=== PATIENT | female | born 1960 | race Caucasian/White ===

== ENCOUNTER 2017-12-10 07:46 | Outpatient (CLI) | payer BC | END 2017-12-10 07:47 | disposition home or self-care (01) | LOC: BICMAMMO 07:46 | PROVIDERS: ATTEND Family Medicine | DX: Z12.31 Encounter for screening mammogram for malignant neoplasm of breast (principal); Z80.3 Family history of malignant neoplasm of breast | CPT/HCPCS: 77063; 77067 ==

== ENCOUNTER 2018-12-26 12:57 | Outpatient (CLI) | payer OTHER ==
--- NOTE | 2018-12-26 13:51 | MMO ---
Bilateral MAMMO Bilat Screen [facility]. CLINICAL HISTORY: Patient is 58 years old and is seen for screening. The patient has the following family history of breast cancer: aunt. The patient has no personal history of cancer. The patient has a history of right Ultrasound Guided Core Biopsy in 2017 - benign and right Ultrasound Guided Core Biopsy in 2007 - benign. VIEWS: The views performed were: bilateral craniocaudal with tomosynthesis and bilateral mediolateral oblique with tomosynthesis. FILMS COMPARED: The present examination has been compared to a prior imaging study performed at [facility] on 12/10/2017. MAMMOGRAM FINDINGS: The breasts are heterogeneously dense, which could obscure a lesion on mammography. There are masses in the retroaerolar breasts bilaterally. IMPRESSION: FINDINGS IN BOTH BREASTS REQUIRE ADDITIONAL EVALUATION. SPOT COMPRESSION IS RECOMMENDED. AN ULTRASOUND EXAM IS RECOMMENDED. THE RESULTS OF THIS EXAM WERE SENT TO THE PATIENT. ACR BI-RADS Category 0 - Incomplete: Need additional imaging evaluation. [facility] will notify the patient of the need for additional imaging services. MAMMOGRAPHY NOTE: 1. A negative mammogram report should not delay a biopsy if a dominant of clinically suspicious mass is present. 2. Approximately 10% to 15% of breast cancers are not detected by mammography. 3. Adenosis and dense breasts may obscure an underlying neoplasm.
== END 2018-12-26 12:58 | disposition home or self-care (01) ==
LOC: BICMAMMO 12:57
PROVIDERS: ATTEND Clinical Nurse Specialist Medical-Surgical
DX: Z12.31 Encounter for screening mammogram for malignant neoplasm of breast (principal); Z80.3 Family history of malignant neoplasm of breast
CPT/HCPCS: 77063; 77067

== ENCOUNTER 2019-01-03 13:34 | Outpatient (CLI) | payer OTHER ==
--- NOTE | 2019-01-03 14:22 | MMO ---
Bilateral MAMMO Bilat Diag [facility]. CLINICAL HISTORY: Patient is 58 years old and is seen for follow-up at short-interval from prior study. The patient has the following family history of breast cancer: aunt. The patient has no personal history of cancer. The patient has a history of right Ultrasound Guided Core Biopsy in 2017 - benign and right Ultrasound Guided Core Biopsy in 2007 - benign. VIEWS: The views performed were: bilateral craniocaudal spot compression with tomosynthesis; bilateral mediolateral with tomosynthesis; left mediolateral oblique spot compression with tomosynthesis; and left mediolateral. FILMS COMPARED: The present examination has been compared to prior imaging studies performed at [facility] on 12/10/2017, 12/26/2018 and 01/03/2019. MAMMOGRAM FINDINGS: The breasts are heterogeneously dense, which could obscure a lesion on mammography. There are multiple round masses of varying size with circumscribed margins seen in the sub-areolar region of both breasts. The masses were shown to be cysts on ultrasound. There are no suspicious masses, suspicious calcifications, or new areas of architectural distortion. IMPRESSION: THERE IS NO MAMMOGRAPHIC EVIDENCE OF MALIGNANCY. A ROUTINE FOLLOW-UP MAMMOGRAM IN 1 YEAR IS RECOMMENDED. THE RESULTS OF THIS EXAM WERE SENT TO THE PATIENT. ACR BI-RADS Category 2 - Benign finding MAMMOGRAPHY NOTE: 1. A negative mammogram report should not delay a biopsy if a dominant of clinically suspicious mass is present. 2. Approximately 10% to 15% of breast cancers are not detected by mammography. 3. Adenosis and dense breasts may obscure an underlying neoplasm.
--- NOTE | 2019-01-03 15:17 | ULT ---
BILATERAL BREAST ULTRASOUND: HISTORY: Asymmetry seen in the retroareolar region of both breasts on mammography. COMPARISON: Mammograms from 01/03/2019 and from 12/26/2018. TECHNIQUE: Multiplanar sprague-scale and color Doppler images were obtained in a bilateral breast ultrasound. FINDINGS: In the retroareolar region of the right breast, there are numerous small cysts, measuring up to 8 mm in size. No suspicious shadowing or mass is seen in the right breast. In the left breast, numerous cysts are identified. The largest measures 2 cm in greatest dimension. No suspicious masses or shadowing is seen in the left breast. IMPRESSION: BI-RADS category 2-Benign findings. Annual screening mammography is recommended. POS: ARAMIS
== END 2019-01-03 13:35 | disposition home or self-care (01) ==
LOC: BICMAMMO 13:34
PROVIDERS: ATTEND Clinical Nurse Specialist Medical-Surgical
DX: N63.41 Unspecified lump in right breast, subareolar (principal); N63.42 Unspecified lump in left breast, subareolar; Z80.3 Family history of malignant neoplasm of breast
CPT/HCPCS: 77066; G0279

== ENCOUNTER 2020-06-02 10:20 | Outpatient (CLI) | payer OTHER ==
--- NOTE | 2020-06-02 10:40 | MMO ---
Bilateral MAMMO Bilat Screen [facility]. CLINICAL HISTORY: Patient is 59 years old and is seen for screening. The patient has the following family history of breast cancer: aunt. The patient has no personal history of cancer. The patient has a history of right Ultrasound Guided Core Biopsy in 2017 - benign and right Ultrasound Guided Core Biopsy in 2007 - benign. VIEWS: The views performed were: bilateral craniocaudal with tomosynthesis and bilateral mediolateral oblique with tomosynthesis. FILMS COMPARED: The present examination has been compared to prior imaging studies performed at [facility] on 12/26/2018 and 01/03/2019. This study has been interpreted with the assistance of computer-aided detection. MAMMOGRAM FINDINGS: The breasts are heterogeneously dense, which could obscure a lesion on mammography. There are no suspicious masses, suspicious calcifications, or new areas of architectural distortion. IMPRESSION: THERE IS NO MAMMOGRAPHIC EVIDENCE OF MALIGNANCY. A ROUTINE FOLLOW-UP MAMMOGRAM IN 1 YEAR IS RECOMMENDED. THE RESULTS OF THIS EXAM WERE SENT TO THE PATIENT. ACR BI-RADS Category 1 - Negative MAMMOGRAPHY NOTE: 1. A negative mammogram report should not delay a biopsy if a dominant of clinically suspicious mass is present. 2. Approximately 10% to 15% of breast cancers are not detected by mammography. 3. Adenosis and dense breasts may obscure an underlying neoplasm. Reported by: GAL RAHMAN MD Electonically Signed: [id number]
== END 2020-06-02 10:21 | disposition home or self-care (01) ==
LOC: BICMAMMO 10:20
PROVIDERS: ATTEND Clinical Nurse Specialist Medical-Surgical
DX: Z12.31 Encounter for screening mammogram for malignant neoplasm of breast (principal); Z91.89 Other specified personal risk factors, not elsewhere classified; Z80.3 Family history of malignant neoplasm of breast
CPT/HCPCS: 77063; 77067

== ENCOUNTER 2021-02-01 10:12 | Inpatient (IN) | payer OTHER ==
[2021-02-01] MEDS ORDERED: Promethazine HCl 12.5 MG in Sodium Chloride 0.9% 50 ML IVPB PRN (10:54)
[2021-02-01] MEDS ORDERED: Ondansetron PF 4 MG/2 ML Vial IVP PRN ×2 (10:55→14:44)
[2021-02-01] MEDS: Sodium Chloride 0.9% 1,000 ML IV SCH ×3 (11:30→21:55)
[2021-02-01 11:49] LABS: #Basophils 0.1 thou/uL (0.0-0.2); #Eosinphils 0.2 thou/uL (0.0-0.7); #Lymphocytes 1.8 thou/uL (1.20-3.40); #Monocytes 0.5 thou/uL (0.11-0.59); #Neutrophils 4.1 thou/uL (1.40-6.50); %Basophils 0.8 % (0.0-1.0); %Lymphocytes 27.2 % (21.0-51.0); %Monocytes 7.7 % (0.0-10.0); %Neutrophils 61.3 % (42.0-75.0); Hemoglobin 14.2 g/dL (12.0-16.0); Mean Corpuscular HGB CONC 33.1 g/dL (32.0-36.0); Mean Corpuscular Hemoglobin 29.2 pg (27.0-31.0); Mean Corpuscular Volume 88.2 fL (78.0-98.0); Mean Platelet Volume 6.8 fL (7.4-10.4); Platelet Count 294 thou/uL (130-400); RBC Distribution Width 13.7 % (11.5-14.5); Red Blood Cell (RBC) Count 4.87 mill/uL (4.20-5.40); White Blood Cell (WBC) Count 6.6 thou/uL (4.8-10.8)
[2021-02-01 12:10] LABS: Anion Gap 14 mmol/L (10-20); BUN (Urea Nitrogen) 14 mg/dL (9.8-20.1); Calc. Creatinine Clearance 0 mL/min (70-130); Calcium 9.9 mg/dL (7.8-10.44); Carbon Dioxide 22 mmol/L (22-29); Chloride 106 mmol/L (98-107); Glucose 96 mg/dL (70-105); Potassium 3.6 mmol/L (3.5-5.1); Sodium 138 mmol/L (136-145)
[2021-02-01] MEDS ORDERED: Levofloxacin 500 mg/D5W 100 ml Premix Bag ONE (13:22)
[2021-02-01] MEDS ORDERED: Fentanyl 100 MCG/2 ML VIAL ONE ×4 (13:35→15:13)
[2021-02-01] MEDS ORDERED: Rocuronium Bromide 10 MG/ML (10ML VIAL) ONE (13:45)
[2021-02-01] MEDS ORDERED: Succinylcholine 200 MG/10 ml SYRINGE FS ONE (13:45)
[2021-02-01] MEDS ORDERED: Lidocaine 1% PF 5 ML VIAL ONE (13:45)
[2021-02-01] MEDS ORDERED: Glycopyrrolate 0.2 MG/ML 5 ML SYRINGE ONE (13:45)
[2021-02-01] MEDS ORDERED: Ondansetron PF 4 MG/2 ML Vial ONE (13:45)
[2021-02-01] MEDS ORDERED: PROPOFOL 200 MG/20 ML VIAL ONE (13:45)
[2021-02-01] MEDS ORDERED: Dexamethasone 20 MG/5 ML VIAL ONE (13:45)
[2021-02-01] MEDS ORDERED: Bupivacaine PF 0.5% 30 ML VIAL ONE (13:56)
[2021-02-01] MEDS ORDERED: hydrALAZINE 20 MG/ML VIAL SLOW IVP PRN (14:44)
[2021-02-01] MEDS ORDERED: Promethazine HCl 25 MG/ML VIAL IM PRN ×2 (14:44→14:59)
[2021-02-01] MEDS ORDERED: Naloxone HCl 0.4 mg/ml Vial IV PRN (14:59)
[2021-02-01] MEDS ORDERED: fentaNYL Citrate/PF 2,000 MCG in Sodium Chloride 0.9% 60 ML IV PRN (14:59)
[2021-02-01] MEDS ORDERED: diphenhydrAMINE 50 MG/ML VIAL IVP PRN (14:59)
[2021-02-01] MEDS ORDERED: Zolpidem Tartrate 5 MG TAB PO PRN (14:59)
[2021-02-01] MEDS ORDERED: diphenhydrAMINE 25 MG CAP PO PRN (14:59)
[2021-02-01] MEDS ORDERED: diphenhydrAMINE 50 MG/ML VIAL IM PRN (14:59)
[2021-02-01] MEDS ORDERED: Communication Order-Pharmacy FS SCH (15:00)
[2021-02-01] MEDS ORDERED: HYDROmorphone 2 MG/ML VIAL ONE (15:16)
[2021-02-01] MEDS: metroNIDAZOLE 500 MG in Premix Bag 1 BAG IVPB SCH (18:09)
[2021-02-01] MEDS: Ketorolac Tromethamine 30 MG/ML VIAL IVP SCH (18:09)
[2021-02-01 19:52] VITALS: BMI 25.0
[2021-02-01] MEDS: Famotidine 20 MG TAB PO SCH (21:55)
[2021-02-01] MEDS: Famotidine/PF 20 mg/2ml Vial SLOW IVP SCH (21:55)
[2021-02-02] MEDS: Sodium Chloride 0.9% 1,000 ML IV SCH ×5 (00:26→17:43)
[2021-02-02] MEDS: Ketorolac Tromethamine 30 MG/ML VIAL IVP SCH ×4 (00:27→18:01)
[2021-02-02] MEDS: metroNIDAZOLE 500 MG in Premix Bag 1 BAG IVPB SCH ×2 (00:28→05:31)
[2021-02-02 06:00] LABS: #Lymphocytes 1.2 thou/uL (1.20-3.40); #Monocytes 0.8 thou/uL (0.11-0.59); #Neutrophils 7.9 thou/uL (1.40-6.50); %Basophils 0.3 % (0.0-1.0); %Eosinophils 0.3 % (0.0-10.0); %Lymphocytes 12.1 % (21.0-51.0); %Neutrophils 79.3 % (42.0-75.0); Mean Corpuscular Hemoglobin 29.4 pg (27.0-31.0); Mean Platelet Volume 6.8 fL (7.4-10.4); Platelet Count 226 thou/uL (130-400); RBC Distribution Width 13.5 % (11.5-14.5); Red Blood Cell (RBC) Count 4.09 mill/uL (4.20-5.40); White Blood Cell (WBC) Count 9.9 thou/uL (4.8-10.8)
[2021-02-02 06:19] LABS: Anion Gap 11 mmol/L (10-20); BUN (Urea Nitrogen) 15 mg/dL (9.8-20.1); Calc. Creatinine Clearance 83 mL/min (70-130); Calcium 8.6 mg/dL (7.8-10.44); Carbon Dioxide 22 mmol/L (22-29); Chloride 108 mmol/L (98-107); Glucose 102 mg/dL (70-105); Potassium 3.8 mmol/L (3.5-5.1); Sodium 137 mmol/L (136-145)
[2021-02-02] MEDS: Famotidine/PF 20 mg/2ml Vial SLOW IVP SCH ×2 (08:14→21:32)
[2021-02-02] MEDS: Enoxaparin Sodium 40 MG/0.4 ML SYRINGE SC SCH (08:14)
[2021-02-02] MEDS: Famotidine 20 MG TAB PO SCH ×2 (08:28→21:29)
[2021-02-02] MEDS ORDERED: Iopamidol 370 76% 50 ML VIAL FS ONE (09:11)
[2021-02-02] MEDS ORDERED: Iopamidol-370 76% 500 ML 1 ML ONE (09:11)
[2021-02-02] MEDS: Ondansetron PF 4 MG/2 ML Vial IVP PRN (19:19)
[2021-02-03] MEDS: Ketorolac Tromethamine 30 MG/ML VIAL IVP SCH ×5 (00:59→23:39)
[2021-02-03] MEDS: Ondansetron PF 4 MG/2 ML Vial IVP PRN (01:04)
[2021-02-03] MEDS: Promethazine HCl 12.5 MG in Sodium Chloride 0.9% 50 ML IVPB PRN ×2 (06:20→22:08)
[2021-02-03] MEDS: Famotidine/PF 20 mg/2ml Vial SLOW IVP SCH ×2 (08:27→21:03)
[2021-02-03] MEDS: Enoxaparin Sodium 40 MG/0.4 ML SYRINGE SC SCH (08:27)
[2021-02-03] MEDS: Famotidine 20 MG TAB PO SCH ×2 (08:31→21:02)
[2021-02-03] MEDS: D5 1/2 NS w/20 mEq KCL 1,000 ML IV SCH ×2 (09:08→17:34)
[2021-02-03 09:35] LABS: #Basophils 0.1 thou/uL (0.0-0.2); #Eosinphils 0.1 thou/uL (0.0-0.7); #Lymphocytes 1.1 thou/uL (1.20-3.40); #Monocytes 0.4 thou/uL (0.11-0.59); #Neutrophils 7.4 thou/uL (1.40-6.50); %Basophils 0.7 % (0.0-1.0); %Eosinophils 0.8 % (0.0-10.0); %Lymphocytes 11.9 % (21.0-51.0); %Monocytes 4.7 % (0.0-10.0); Hemoglobin 14.2 g/dL (12.0-16.0); Mean Corpuscular HGB CONC 32.7 g/dL (32.0-36.0); Mean Corpuscular Hemoglobin 29.3 pg (27.0-31.0); Mean Corpuscular Volume 89.6 fL (78.0-98.0); Mean Platelet Volume 7.1 fL (7.4-10.4); Platelet Count 270 thou/uL (130-400); RBC Distribution Width 13.6 % (11.5-14.5); Red Blood Cell (RBC) Count 4.87 mill/uL (4.20-5.40); White Blood Cell (WBC) Count 9.1 thou/uL (4.8-10.8)
[2021-02-03 09:47] LABS: Anion Gap 17 mmol/L (10-20); BUN (Urea Nitrogen) 12 mg/dL (9.8-20.1); Calc. Creatinine Clearance 72 mL/min (70-130); Calcium 9.6 mg/dL (7.8-10.44); Carbon Dioxide 18 mmol/L (22-29); Chloride 109 mmol/L (98-107); Glucose 99 mg/dL (70-105); Potassium 3.8 mmol/L (3.5-5.1); Sodium 140 mmol/L (136-145)
[2021-02-03] MEDS: Sodium Chloride 0.9% 1,000 ML IV SCH (17:22)
[2021-02-04] MEDS: D5 1/2 NS w/20 mEq KCL 1,000 ML IV SCH ×3 (01:30→21:40)
[2021-02-04] MEDS: Ketorolac Tromethamine 30 MG/ML VIAL IVP SCH ×3 (06:58→18:46)
[2021-02-04] MEDS: Famotidine/PF 20 mg/2ml Vial SLOW IVP SCH ×2 (09:55→21:40)
[2021-02-04] MEDS: Enoxaparin Sodium 40 MG/0.4 ML SYRINGE SC SCH (10:01)
[2021-02-04] MEDS: Famotidine 20 MG TAB PO SCH ×2 (10:02→21:55)
[2021-02-04] MEDS ORDERED: Levofloxacin 500 mg/D5W 100 ml Premix Bag ONE (11:47)
[2021-02-04] MEDS ORDERED: Bupivacaine 0.25% HCL 30 ML VIAL ONE (12:00)
[2021-02-04] MEDS ORDERED: Lidocaine 1% w/Epinephrine 1:100K 20 ML VIAL ONE (12:00)
[2021-02-04] MEDS ORDERED: Ketamine 50 MG/ML (10ML VIAL) ONE (12:06)
[2021-02-04] MEDS ORDERED: Midazolam HCl 2 mg/2 ml Vial ONE (12:06)
[2021-02-04] MEDS ORDERED: Fentanyl 100 MCG/2 ML VIAL ONE ×2 (12:06→13:21)
[2021-02-04] MEDS ORDERED: Propofol 500 MG/50 ML VIAL ONE (12:10)
[2021-02-04] MEDS ORDERED: Dexamethasone 20 MG/5 ML VIAL ONE (12:23)
[2021-02-04] MEDS ORDERED: Lidocaine 1% PF 5 ML VIAL ONE (12:23)
[2021-02-04] MEDS ORDERED: Glycopyrrolate 0.2 MG/ML 5 ML SYRINGE ONE (12:23)
[2021-02-04] MEDS ORDERED: Ondansetron PF 4 MG/2 ML Vial ONE (12:23)
[2021-02-04] MEDS ORDERED: PROPOFOL 200 MG/20 ML VIAL ONE (12:23)
[2021-02-04] MEDS: Sodium Chloride 0.9% 1,000 ML IV SCH (16:09)
[2021-02-04] MEDS ORDERED: HYDROcodone/Acetaminophen 7.5/325 mg Tablet PO PRN ×2 (16:39)
[2021-02-04] MEDS: Acetaminophen/Codeine 30-300mg Tablet PO PRN (21:58)
[2021-02-05] MEDS: D5 1/2 NS w/20 mEq KCL 1,000 ML IV SCH ×3 (05:14→17:37)
[2021-02-05] MEDS: Acetaminophen/Codeine 30-300mg Tablet PO PRN ×3 (05:16→20:28)
[2021-02-05] MEDS: Famotidine 20 MG TAB PO SCH ×2 (09:02→20:28)
[2021-02-05] MEDS: Enoxaparin Sodium 40 MG/0.4 ML SYRINGE SC SCH ×2 (09:03→09:04)
[2021-02-05] MEDS: Famotidine/PF 20 mg/2ml Vial SLOW IVP SCH ×2 (09:03→20:26)
[2021-02-05] MEDS: Sodium Chloride 0.9% 1,000 ML IV SCH (17:37)
[2021-02-06] MEDS: D5 1/2 NS w/20 mEq KCL 1,000 ML IV SCH (03:41)
[2021-02-06] MEDS: Acetaminophen/Codeine 30-300mg Tablet PO PRN (05:22)
[2021-02-06 08:31] VITALS: BP 118/72; TEMP 98.4
[2021-02-06] MEDS: Famotidine 20 MG TAB PO SCH (10:09)
[2021-02-06] MEDS: Enoxaparin Sodium 40 MG/0.4 ML SYRINGE SC SCH (10:09)
[2021-02-06] MEDS: Famotidine/PF 20 mg/2ml Vial SLOW IVP SCH (10:10)
== END 2021-02-06 12:35 | disposition home or self-care (01) | DRG 330 ==
LOC: SURG A 10:20
PROVIDERS: ADMIT Surgery; ATTEND Surgery
PROC: 0D1B4Z4 Bypass Ileum to Cutaneous, Percutaneous Endoscopic Approach (ICD-10-PCS; principal; 2021-02-01)
PROC: 0JH60WZ Insertion of Totally Implantable Vascular Access Device into Chest Subcutaneous Tissue and Fascia, Open Approach (ICD-10-PCS; 2021-02-04)
PROC: 02HV33Z Insertion of Infusion Device into Superior Vena Cava, Percutaneous Approach (ICD-10-PCS; 2021-02-04)
DX: C20 Malignant neoplasm of rectum (principal); K56.609 Unspecified intestinal obstruction, unspecified as to partial versus complete obstruction; N39.0 Urinary tract infection, site not specified; M19.90 Unspecified osteoarthritis, unspecified site; B37.3 Candidiasis of vulva and vagina; I10 Essential (primary) hypertension; Z79.899 Other long term (current) drug therapy; Z90.710 Acquired absence of both cervix and uterus; Z90.89 Acquired absence of other organs; Z98.890 Other specified postprocedural states; Z87.891 Personal history of nicotine dependence; Z88.0 Allergy status to penicillin; Z88.8 Allergy status to other drugs, medicaments and biological substances; Z86.73 Personal history of transient ischemic attack (TIA), and cerebral infarction without residual deficits; Z88.5 Allergy status to narcotic agent
CPT/HCPCS: 36415; 71045; 71260; 74018; 74177; 80048; 82378; 85025; C1788; J1100; J1170; J1642; J1650; J1885; J1956; J2250; J2405; J2550; J2704; J3010; J3480; J3490; Q9967; S0020; S0028

== ENCOUNTER 2021-04-15 16:08 | Inpatient (IN) | payer OTHER ==
[~2021-04-15 16:08] MED LIST: Iopamidol-370 76% 500 ML 1 ML ONE
[2021-04-15] MEDS ORDERED: Ondansetron PF 4 MG/2 ML Vial ONE (20:31)
[2021-04-16] MEDS ORDERED: Sodium Chloride 0.9% 1,000 ML IV SCH (09:00)
[2021-04-16] MEDS ORDERED: hydrALAZINE 20 MG/ML VIAL SLOW IVP PRN (09:53)
[2021-04-16] MEDS ORDERED: Lorazepam 2 MG/ML VIAL SLOW IVP PRN (09:53)
[2021-04-16] MEDS ORDERED: diphenhydrAMINE 50 MG/ML VIAL IVP PRN (09:53)
[2021-04-16] MEDS: Dextrose 5 %-0.45 % NaCl 1,000 ML IV SCH ×2 (10:28→19:55)
[2021-04-16] MEDS: Pantoprazole 40 MG VIAL IVP SCH (10:34)
[2021-04-16] MEDS: Promethazine HCl 25 MG in Sodium Chloride 0.9% 50 ML IVPB PRN (11:11)
[2021-04-16] MEDS: Acetaminophen 500 MG TAB PO PRN (21:02)
[2021-04-16] MEDS: Gabapentin 300 MG CAP PO SCH (21:03)
[2021-04-17] MEDS: Dextrose 5 %-0.45 % NaCl 1,000 ML IV SCH ×3 (02:52→21:18)
[2021-04-17] MEDS: Promethazine HCl 25 MG in Sodium Chloride 0.9% 50 ML IVPB PRN ×2 (03:56→21:41)
[2021-04-17 05:07] VITALS: BMI 20.5
[2021-04-17 07:19] LABS: Anion Gap 11 mmol/L (10-20); BUN (Urea Nitrogen) 11 mg/dL (9.8-20.1); Calc. Creatinine Clearance 70 mL/min (70-130); Carbon Dioxide 18 mmol/L (22-29); Chloride 112 mmol/L (98-107); Glucose 128 mg/dL (70-105); Potassium 3.9 mmol/L (3.5-5.1); Sodium 137 mmol/L (136-145)
[2021-04-17 07:33] LABS: Hemoglobin 10.8 g/dL (12.0-16.0); Mean Corpuscular HGB CONC 34.7 g/dL (32.0-36.0); Mean Corpuscular Hemoglobin 30.3 pg (27.0-31.0); Mean Corpuscular Volume 87.3 fL (78.0-98.0); Mean Platelet Volume 7.7 fL (7.4-10.4); Platelet Count 139 thou/uL (130-400); RBC Distribution Width 16.2 % (11.5-14.5); Red Blood Cell (RBC) Count 3.58 mill/uL (4.20-5.40); White Blood Cell (WBC) Count 3.8 thou/uL (4.8-10.8)
[2021-04-17] MEDS: Gabapentin 300 MG CAP PO SCH ×2 (09:05→21:18)
[2021-04-17] MEDS: Pantoprazole 40 MG VIAL IVP SCH (09:06)
[2021-04-17 09:51] LABS: Anisocytosis SLIGHT = 6-15 cells (100X) (0-5/hpf); Band 2 % (5-11); Lymphocytes 31 % (21-51); MDiff Complete? YES; Monocytes 13 % (0-10); Neutrophil 54 % (42-75); Platelet Morphology Comment Appears Adequate; Polychromasia SLIGHT = 2-3 cells (100X) (0-2/hpf)
[2021-04-17] MEDS: Acetaminophen 500 MG TAB PO PRN (14:18)
[2021-04-18] MEDS: Dextrose 5 %-0.45 % NaCl 1,000 ML IV SCH (06:31)
[2021-04-18 08:50] VITALS: TEMP 97.5
[2021-04-18] MEDS: Gabapentin 300 MG CAP PO SCH (08:59)
[2021-04-18] MEDS: Pantoprazole 40 MG VIAL IVP SCH (09:00)
[2021-04-18 12:19] VITALS: BP 116/52
== END 2021-04-18 13:51 | disposition home or self-care (01) | DRG 392 ==
LOC: ERS 16:08 → SURG A 23:38 → OBSVTOIN 04-16 09:53
PROVIDERS: ADMIT Student in an Organized Health Care Education/Training Program; ATTEND Student in an Organized Health Care Education/Training Program
DX: R11.2 Nausea with vomiting, unspecified (principal); N17.9 Acute kidney failure, unspecified; C20 Malignant neoplasm of rectum; E44.0 Moderate protein-calorie malnutrition; T45.1X5A Adverse effect of antineoplastic and immunosuppressive drugs, initial encounter; E86.0 Dehydration; Z68.20 Body mass index [BMI] 20.0-20.9, adult; Z90.710 Acquired absence of both cervix and uterus; Z79.899 Other long term (current) drug therapy; Z88.1 Allergy status to other antibiotic agents; Z88.5 Allergy status to narcotic agent; Z88.0 Allergy status to penicillin; Z88.8 Allergy status to other drugs, medicaments and biological substances; Z91.018 Allergy to other foods; Z93.2 Ileostomy status
CPT/HCPCS: 36415; 71275; 74177; 80048; 85025; C9113; G0378; J2060; J2405; J2550; J7042; Q9967

== ENCOUNTER 2021-06-30 13:50 | Outpatient (CLI) | payer OTHER | END 2021-06-30 13:51 | disposition home or self-care (01) | LOC: BICMRI 13:50 | PROVIDERS: ATTEND Radiology Radiation Oncology | DX: C20 Malignant neoplasm of rectum (principal); Z92.21 Personal history of antineoplastic chemotherapy | CPT/HCPCS: 72197 ==

== ENCOUNTER 2021-08-08 14:16 | Emergency (ER) | payer BC ==
[2021-08-08] MEDS ORDERED: Ondansetron PF 4 MG/2 ML Vial ONE (14:56)
[2021-08-08 15:05] LABS: #Eosinphils 0.4 thou/uL (0.0-0.7); #Lymphocytes 0.4 thou/uL (1.20-3.40); #Monocytes 0.4 thou/uL (0.11-0.59); #Neutrophils 3.2 thou/uL (1.40-6.50); %Basophils 0.6 % (0.0-1.0); %Eosinophils 8.4 % (0.0-10.0); %Lymphocytes 8.4 % (21.0-51.0); %Monocytes 9.1 % (0.0-10.0); %Neutrophils 73.6 % (42.0-75.0); Hemoglobin 14.8 g/dL (12.0-16.0); Mean Corpuscular HGB CONC 35.3 g/dL (32.0-36.0); Mean Corpuscular Hemoglobin 34.9 pg (27.0-31.0); Mean Platelet Volume 6.7 fL (7.4-10.4); Platelet Count 198 thou/uL (130-400); RBC Distribution Width 15.5 % (11.5-14.5); Red Blood Cell (RBC) Count 4.24 mill/uL (4.20-5.40); White Blood Cell (WBC) Count 4.3 thou/uL (4.8-10.8)
[2021-08-08 15:28] LABS: ALT (SGPT) 17 U/L (8-55); AST (SGOT) 20 U/L (5-34); Albumin 3.8 g/dL (3.5-5.0); Alkaline Phosphatase 63 U/L (40-110); Anion Gap 15 mmol/L (10-20); BUN (Urea Nitrogen) 19 mg/dL (9.8-20.1); Bilirubin, Total 0.7 mg/dL (0.2-1.2); Calc. Creatinine Clearance 0 mL/min (70-130); Calcium 9.7 mg/dL (7.8-10.44); Carbon Dioxide 19 mmol/L (22-29); Chloride 108 mmol/L (98-107); Globulin 2.1 g/dL (2.4-3.5); Glucose 111 mg/dL (70-105); Potassium 3.9 mmol/L (3.5-5.1); Protein, Total 5.9 g/dL (6.0-8.3); Sodium 138 mmol/L (136-145)
[2021-08-08 15:44] LABS: Bacteria/HPF None Seen HPF (None Seen); Bilirubin Negative (Negative); Blood, Urine Negative (Negative); Clarity Clear (Clear); Glucose, Urine (Dipstick) Normal (Negative); Ketone, Urine Negative (Negative); Leukocyte Negative Leu/uL (Negative); Nitrite Negative (Negative); Protein, Urine (Dipstick) 30 mg/dL (Neg-Trace); RBC/HPF 0-3 HPF (0-3); Specific Gravity, Urine 1.029 (1.002-1.036); Squamous Epithelial None Seen HPF (0-3); Urobilinogen Normal mg/dL (Less than 2); WBC/HPF 0-3 HPF (0-3); pH, Urine 5.5 (5.0-9.0)
[2021-08-08 15:48] LABS: CKMB 1.7 ng/mL (0-6.6)
[2021-08-08] MEDS ORDERED: Promethazine HCl 25 MG/ML VIAL ONE (16:56)
== END 2021-08-08 17:40 | disposition home or self-care (01) ==
LOC: ERS 14:16
DX: E86.0 Dehydration (principal); R55 Syncope and collapse; I51.7 Cardiomegaly; I10 Essential (primary) hypertension; Z85.048 Personal history of other malignant neoplasm of rectum, rectosigmoid junction, and anus
CPT/HCPCS: 36415; 51701; 70450; 71045; 72125; 80053; 81003; 81015; 82553; 83605; 83880; 84484; 85025; 93005; 96372; 96374; J2405; J2550

== ENCOUNTER 2021-08-15 11:11 | Inpatient (IN) | payer BC ==
[2021-08-15] MEDS ORDERED: Prochlorperazine Maleate 5 MG TAB PO PRN (18:38)
[2021-08-15] MEDS ORDERED: Acetaminophen 325 MG TAB PO PRN ×2 (18:39→18:40)
[2021-08-15] MEDS ORDERED: Acetaminophen 650 MG Suppository PR PRN (18:39)
[2021-08-15 19:39] LABS: Anion Gap 10 mmol/L (10-20); BUN (Urea Nitrogen) 14 mg/dL (9.8-20.1); Calc. Creatinine Clearance 77 mL/min (70-130); Calcium 8.8 mg/dL (7.8-10.44); Carbon Dioxide 19 mmol/L (22-29); Chloride 105 mmol/L (98-107); Glucose 148 mg/dL (70-105); Magnesium 1.7 mg/dL (1.6-2.6); Potassium 3.1 mmol/L (3.5-5.1); Sodium 131 mmol/L (136-145)
[2021-08-15] MEDS: Ondansetron PF 4 MG/2 ML Vial IVP PRN (20:48)
[2021-08-15] MEDS: D5 1/2 NS w/20 mEq KCL 1,000 ML IV SCH (20:50)
[2021-08-15] MEDS: Hydrocortisone/Pramoxine (Proctofoam HC) 10 GM BOX TOP SCH (20:57)
[2021-08-15] MEDS: Scopolamine 1.5 mg/72 hour Patch TOP SCH (20:57)
[2021-08-15] MEDS: Gabapentin 300 MG CAP PO SCH (20:57)
[2021-08-15] MEDS ORDERED: CAPECITABINE 500 MG PO SCH (21:00)
[2021-08-15] MEDS: Lorazepam 2 MG/ML VIAL SLOW IVP PRN (21:02)
[2021-08-16] MEDS: D5 1/2 NS w/20 mEq KCL 1,000 ML IV SCH ×3 (05:17→20:44)
[2021-08-16] MEDS: Lorazepam 2 MG/ML VIAL SLOW IVP PRN ×2 (08:58→21:22)
[2021-08-16] MEDS: Hydrocortisone/Pramoxine (Proctofoam HC) 10 GM BOX TOP SCH ×2 (09:02→21:25)
[2021-08-16] MEDS: Gabapentin 300 MG CAP PO SCH ×3 (09:02→21:24)
[2021-08-16] MEDS ORDERED: HYDROmorphone 0.5 MG/0.5 ML SYRINGE SLOW IVP PRN (12:09)
[2021-08-16 15:44] LABS: Anion Gap 8 mmol/L (10-20); BUN (Urea Nitrogen) 8 mg/dL (9.8-20.1); Calc. Creatinine Clearance 86 mL/min (70-130); Calcium 8.4 mg/dL (7.8-10.44); Carbon Dioxide 20 mmol/L (22-29); Chloride 108 mmol/L (98-107); Glucose 119 mg/dL (70-105); Potassium 3.3 mmol/L (3.5-5.1); Sodium 133 mmol/L (136-145)
[2021-08-16] MEDS: Promethazine HCl 12.5 MG in Sodium Chloride 0.9% 50 ML IVPB PRN (16:15)
[2021-08-16] MEDS ORDERED: HYDROmorphone 0.5 MG/0.5 ML SYRINGE SLOW IVP SCH ×2 (17:00→21:00)
[2021-08-16] MEDS ORDERED: Potassium Chloride 40 MEQ in Sodium Chloride 0.9% 250 ML 250 ML IVPB SCH (17:45)
[2021-08-16] MEDS: Ketorolac Tromethamine 30 MG/ML VIAL IVP SCH (18:10)
[2021-08-17] MEDS: Promethazine HCl 12.5 MG in Sodium Chloride 0.9% 50 ML IVPB PRN ×4 (00:44→23:47)
[2021-08-17] MEDS: Ketorolac Tromethamine 30 MG/ML VIAL IVP SCH ×6 (00:44→23:44)
[2021-08-17] MEDS: Lorazepam 2 MG/ML VIAL SLOW IVP PRN ×6 (00:44→23:41)
[2021-08-17] MEDS: D5 1/2 NS w/20 mEq KCL 1,000 ML IV SCH ×3 (04:03→19:39)
[2021-08-17] MEDS: Gabapentin 300 MG CAP PO SCH ×3 (08:47→19:38)
[2021-08-17] MEDS: Hydrocortisone/Pramoxine (Proctofoam HC) 10 GM BOX TOP SCH ×2 (08:48→19:39)
[2021-08-17 09:35] LABS: Hemoglobin 11.1 g/dL (12.0-16.0); Mean Corpuscular HGB CONC 33.6 g/dL (32.0-36.0); Mean Corpuscular Hemoglobin 33.9 pg (27.0-31.0); Platelet Count 162 thou/uL (130-400); RBC Distribution Width 16.2 % (11.5-14.5); Red Blood Cell (RBC) Count 3.28 mill/uL (4.20-5.40); White Blood Cell (WBC) Count 2.5 thou/uL (4.8-10.8)
[2021-08-17] MEDS ORDERED: Haloperidol Lactate 5 MG/ML VIAL IM PRN (14:48)
[2021-08-17] MEDS ORDERED: Haloperidol Lactate 5 MG/ML VIAL SLOW IVP PRN (14:51)
[2021-08-18] MEDS: D5 1/2 NS w/20 mEq KCL 1,000 ML IV SCH (03:04)
[2021-08-18] MEDS: Ondansetron PF 4 MG/2 ML Vial IVP PRN ×3 (03:04→16:47)
[2021-08-18 05:51] LABS: Anion Gap 11 mmol/L (10-20); BUN (Urea Nitrogen) 5 mg/dL (9.8-20.1); Calc. Creatinine Clearance 86 mL/min (70-130); Calcium 9.1 mg/dL (7.8-10.44); Carbon Dioxide 17 mmol/L (22-29); Chloride 108 mmol/L (98-107); Glucose 111 mg/dL (70-105); Potassium 3.6 mmol/L (3.5-5.1); Sodium 132 mmol/L (136-145)
[2021-08-18] MEDS: Ketorolac Tromethamine 30 MG/ML VIAL IVP SCH ×3 (05:57→16:47)
[2021-08-18 06:05] LABS: Hemoglobin 11.9 g/dL (12.0-16.0); Mean Corpuscular Hemoglobin 34.8 pg (27.0-31.0); Mean Corpuscular Volume 99.4 fL (78.0-98.0); Mean Platelet Volume 6.3 fL (7.4-10.4); Platelet Count 180 thou/uL (130-400); RBC Distribution Width 16.7 % (11.5-14.5); Red Blood Cell (RBC) Count 3.41 mill/uL (4.20-5.40); White Blood Cell (WBC) Count 3.2 thou/uL (4.8-10.8)
[2021-08-18] MEDS: Gabapentin 300 MG CAP PO SCH ×3 (10:23→21:38)
[2021-08-18] MEDS: Hydrocortisone/Pramoxine (Proctofoam HC) 10 GM BOX TOP SCH ×2 (10:23→21:38)
[2021-08-18] MEDS: D5 0.9% NS w/ 20 mEq KCl 1,000 ML IV SCH ×2 (10:47→21:11)
[2021-08-18 11:05] LABS: Band 13 % (5-11); Eosinophils 12 % (0-10); Lymphocytes 3 % (21-51); MDiff Complete? YES; Monocytes 8 % (0-10); Neutrophil 54 % (42-75); RBC Morphology Normal; Reactive Lymphocytes 10 % (0-10)
[2021-08-18] MEDS: Lorazepam 2 MG/ML VIAL SLOW IVP PRN (18:11)
[2021-08-18] MEDS: Scopolamine 1.5 mg/72 hour Patch TOP SCH (21:11)
[2021-08-18] MEDS: Promethazine HCl 12.5 MG in Sodium Chloride 0.9% 50 ML IVPB PRN (23:27)
[2021-08-19] MEDS: Lorazepam 2 MG/ML VIAL SLOW IVP PRN ×5 (00:32→22:35)
[2021-08-19] MEDS: Ketorolac Tromethamine 30 MG/ML VIAL IVP SCH ×4 (01:27→17:44)
[2021-08-19] MEDS: D5 0.9% NS w/ 20 mEq KCl 1,000 ML IV SCH ×4 (05:29→20:45)
[2021-08-19 09:08] LABS: Anion Gap 12 mmol/L (10-20); BUN (Urea Nitrogen) 7 mg/dL (9.8-20.1); Calc. Creatinine Clearance 75 mL/min (70-130); Calcium 9.6 mg/dL (7.8-10.44); Carbon Dioxide 18 mmol/L (22-29); Chloride 109 mmol/L (98-107); Glucose 131 mg/dL (70-105); Potassium 4.2 mmol/L (3.5-5.1); Sodium 135 mmol/L (136-145)
[2021-08-19] MEDS: Ondansetron PF 4 MG/2 ML Vial IVP PRN ×2 (09:56→19:18)
[2021-08-19] MEDS: Hydrocortisone/Pramoxine (Proctofoam HC) 10 GM BOX TOP SCH ×2 (10:58→20:43)
[2021-08-19] MEDS: Gabapentin 300 MG CAP PO SCH ×3 (10:58→20:43)
[2021-08-20] MEDS: Fentanyl 100 MCG/2 ML VIAL SLOW IVP PRN ×3 (01:30→19:35)
[2021-08-20] MEDS: Ketorolac Tromethamine 30 MG/ML VIAL IVP SCH ×5 (02:26→23:03)
[2021-08-20] MEDS: Lorazepam 2 MG/ML VIAL SLOW IVP PRN ×4 (02:27→21:21)
[2021-08-20] MEDS: D5 0.9% NS w/ 20 mEq KCl 1,000 ML IV SCH ×3 (03:57→19:35)
[2021-08-20] MEDS: Ondansetron PF 4 MG/2 ML Vial IVP PRN ×4 (03:57→23:21)
[2021-08-20] MEDS: Gabapentin 300 MG CAP PO SCH ×3 (10:02→21:19)
[2021-08-20] MEDS: Hydrocortisone/Pramoxine (Proctofoam HC) 10 GM BOX TOP SCH ×2 (10:02→21:20)
[2021-08-20 18:19] LABS: Anion Gap 10 mmol/L (10-20); BUN (Urea Nitrogen) 6 mg/dL (9.8-20.1); Calc. Creatinine Clearance 72 mL/min (70-130); Calcium 9.6 mg/dL (7.8-10.44); Carbon Dioxide 22 mmol/L (22-29); Chloride 109 mmol/L (98-107); Glucose 102 mg/dL (70-105); Potassium 3.8 mmol/L (3.5-5.1); Sodium 137 mmol/L (136-145)
[2021-08-21] MEDS: Lorazepam 2 MG/ML VIAL SLOW IVP PRN ×5 (01:19→21:21)
[2021-08-21] MEDS: D5 0.9% NS w/ 20 mEq KCl 1,000 ML IV SCH ×2 (04:05→10:04)
[2021-08-21] MEDS: Ondansetron PF 4 MG/2 ML Vial IVP PRN ×3 (05:04→18:00)
[2021-08-21] MEDS: Ketorolac Tromethamine 30 MG/ML VIAL IVP SCH ×3 (05:40→17:26)
[2021-08-21 07:35] LABS: Anion Gap 13 mmol/L (10-20); BUN (Urea Nitrogen) 5 mg/dL (9.8-20.1); Calc. Creatinine Clearance 73 mL/min (70-130); Calcium 9.7 mg/dL (7.8-10.44); Carbon Dioxide 15 mmol/L (22-29); Chloride 110 mmol/L (98-107); Glucose 117 mg/dL (70-105); Potassium 4.1 mmol/L (3.5-5.1); Sodium 134 mmol/L (136-145)
[2021-08-21 08:52] LABS: Hemoglobin 12.6 g/dL (12.0-16.0); MDiff Complete? YES; Mean Corpuscular HGB CONC 33.6 g/dL (32.0-36.0); Mean Corpuscular Hemoglobin 34.1 pg (27.0-31.0); Mean Platelet Volume 6.1 fL (7.4-10.4); Platelet Count 192 thou/uL (130-400); RBC Distribution Width 16.8 % (11.5-14.5); Red Blood Cell (RBC) Count 3.68 mill/uL (4.20-5.40); White Blood Cell (WBC) Count 3.2 thou/uL (4.8-10.8)
[2021-08-21 08:53] LABS: Band 9 % (5-11); Eosinophils 7 % (0-10); Lymphocytes 1 % (21-51); Monocytes 23 % (0-10); Neutrophil 57 % (42-75); Platelet Morphology Comment Appears Adequate; RBC Morphology Normal; Reactive Lymphocytes 3 % (0-10)
[2021-08-21] MEDS: Hydrocortisone/Pramoxine (Proctofoam HC) 10 GM BOX TOP SCH ×2 (09:17→21:18)
[2021-08-21] MEDS: Gabapentin 300 MG CAP PO SCH ×3 (09:17→21:18)
[2021-08-21] MEDS ORDERED: Sodium Chloride 0.65% Nasal 44 ML BOT EA NARE PRN (10:03)
[2021-08-21] MEDS ORDERED: Sodium Bicarbonate 100 MEQ in Dextrose 5% in Water 1,000 ML IV SCH (10:15)
[2021-08-21] MEDS: Fentanyl 100 MCG/2 ML VIAL SLOW IVP PRN (12:41)
[2021-08-21] MEDS: Promethazine HCl 12.5 MG in Sodium Chloride 0.9% 50 ML IVPB PRN (21:20)
[2021-08-21] MEDS: Scopolamine 1.5 mg/72 hour Patch TOP SCH (21:20)
[2021-08-22] MEDS: Ondansetron PF 4 MG/2 ML Vial IVP PRN ×3 (05:04→23:11)
[2021-08-22] MEDS: Hydrocortisone/Pramoxine (Proctofoam HC) 10 GM BOX TOP SCH ×2 (09:00→20:30)
[2021-08-22] MEDS: Megestrol Acetate 40 MG TAB PO SCH (09:00)
[2021-08-22] MEDS: Gabapentin 300 MG CAP PO SCH ×3 (09:00→20:30)
[2021-08-22] MEDS: Lorazepam 2 MG/ML VIAL SLOW IVP PRN (09:45)
[2021-08-22 11:28] LABS: Anion Gap 21 mmol/L (10-20); BUN (Urea Nitrogen) 10 mg/dL (9.8-20.1); Calc. Creatinine Clearance 35 mL/min (70-130); Calcium 12.3 mg/dL (7.8-10.44); Carbon Dioxide 25 mmol/L (22-29); Chloride 93 mmol/L (98-107); Glucose 123 mg/dL (70-105); Potassium 4.2 mmol/L (3.5-5.1); Sodium 135 mmol/L (136-145)
[2021-08-22] MEDS ORDERED: Sodium Chloride 0.9% 1,000 ML IV SCH (11:30)
[2021-08-22 11:54] LABS: Anion Gap 22 mmol/L (10-20); BUN (Urea Nitrogen) 11 mg/dL (9.8-20.1); Calc. Creatinine Clearance 30 mL/min (70-130); Carbon Dioxide 18 mmol/L (22-29); Chloride 96 mmol/L (98-107); Glucose 204 mg/dL (70-105); Potassium 4.2 mmol/L (3.5-5.1); Sodium 132 mmol/L (136-145)
[2021-08-22 11:57] LABS: Hemoglobin 17.7 g/dL (12.0-16.0); Mean Corpuscular HGB CONC 33.9 g/dL (32.0-36.0); Mean Corpuscular Hemoglobin 34.3 pg (27.0-31.0); Mean Platelet Volume 7.2 fL (7.4-10.4); Platelet Count 254 thou/uL (130-400); RBC Distribution Width 17.1 % (11.5-14.5); Red Blood Cell (RBC) Count 5.17 mill/uL (4.20-5.40); White Blood Cell (WBC) Count 7.4 thou/uL (4.8-10.8)
[2021-08-22 12:07] LABS: Calcium 12.3 mg/dL (7.8-10.44)
[2021-08-22 12:20] LABS: Band 13 % (5-11); Lymphocytes 9 % (21-51); MDiff Complete? YES; Monocytes 10 % (0-10); Neutrophil 64 % (42-75); Platelet Morphology Comment Appears Adequate; RBC Morphology Normal; Reactive Lymphocytes 4 % (0-10)
[2021-08-22] MEDS: Sodium Chloride 0.9% 1,000 ML IV SCH ×2 (12:57→19:29)
[2021-08-22 13:13] LABS: Troponin I 0.063 ng/mL (< 0.028)
[2021-08-22 15:25] LABS: Troponin I 0.066 ng/mL (< 0.028)
[2021-08-22] MEDS ORDERED: Fentanyl 100 MCG/2 ML VIAL SLOW IVP SCH (20:15)
[2021-08-23] MEDS: Sodium Chloride 0.9% 1,000 ML IV SCH ×4 (01:58→22:10)
[2021-08-23] MEDS: Lorazepam 2 MG/ML VIAL SLOW IVP PRN ×3 (03:07→20:58)
[2021-08-23 04:08] LABS: Band 9 % (5-11); Hemoglobin 14.4 g/dL (12.0-16.0); Hypochromia SLIGHT = 6-15 cells (100X) (0-5/hpf); Lymphocytes 10 % (21-51); MDiff Complete? YES; Mean Corpuscular HGB CONC 33.7 g/dL (32.0-36.0); Mean Corpuscular Hemoglobin 33.6 pg (27.0-31.0); Mean Corpuscular Volume 99.6 fL (78.0-98.0); Mean Platelet Volume 6.5 fL (7.4-10.4); Monocytes 11 % (0-10); Neutrophil 70 % (42-75); Platelet Count 222 thou/uL (130-400); Platelet Morphology Comment Appears Decreased; RBC Distribution Width 16.8 % (11.5-14.5); Red Blood Cell (RBC) Count 4.28 mill/uL (4.20-5.40); White Blood Cell (WBC) Count 4.8 thou/uL (4.8-10.8)
[2021-08-23 04:13] LABS: ALT (SGPT) 27 U/L (8-55); AST (SGOT) 25 U/L (5-34); Albumin 3.6 g/dL (3.5-5.0); Alkaline Phosphatase 72 U/L (40-110); Anion Gap 16 mmol/L (10-20); BUN (Urea Nitrogen) 15 mg/dL (9.8-20.1); Bilirubin, Total 0.9 mg/dL (0.2-1.2); Calc. Creatinine Clearance 41 mL/min (70-130); Calcium 10.4 mg/dL (7.8-10.44); Carbon Dioxide 24 mmol/L (22-29); Chloride 100 mmol/L (98-107); Globulin 2.2 g/dL (2.4-3.5); Glucose 117 mg/dL (70-105); Phosphorus 4.3 mg/dL (2.3-4.7); Potassium 3.5 mmol/L (3.5-5.1); Protein, Total 5.8 g/dL (6.0-8.3); Sodium 136 mmol/L (136-145)
[2021-08-23] MEDS: Megestrol Acetate 40 MG TAB PO SCH (08:23)
[2021-08-23] MEDS: Hydrocortisone/Pramoxine (Proctofoam HC) 10 GM BOX TOP SCH ×2 (08:23→22:04)
[2021-08-23] MEDS: Gabapentin 300 MG CAP PO SCH ×3 (08:23→22:09)
[2021-08-23] MEDS: Ondansetron PF 4 MG/2 ML Vial IVP PRN ×2 (11:53→17:04)
[2021-08-24] MEDS: Lorazepam 2 MG/ML VIAL SLOW IVP PRN ×4 (04:17→20:47)
[2021-08-24] MEDS: Sodium Chloride 0.9% 1,000 ML IV SCH ×3 (04:55→20:45)
[2021-08-24] MEDS: Hydrocortisone/Pramoxine (Proctofoam HC) 10 GM BOX TOP SCH ×2 (07:42→20:48)
[2021-08-24] MEDS: Megestrol Acetate 40 MG TAB PO SCH (07:42)
[2021-08-24] MEDS: Gabapentin 300 MG CAP PO SCH ×3 (07:42→20:47)
[2021-08-24] MEDS ORDERED: HYDROcodone/Acetaminophen 5/325 mg Tablet PO PRN (09:39)
[2021-08-24] MEDS: Ondansetron PF 4 MG/2 ML Vial IVP PRN (13:22)
[2021-08-24 15:46] VITALS: BMI 18.3
[2021-08-24] MEDS: Dexamethasone 4 mg/ml Vial SLOW IVP SCH (20:45)
[2021-08-24] MEDS: Ketorolac Tromethamine 30 MG/ML VIAL IVP PRN (20:45)
[2021-08-24] MEDS: Scopolamine 1.5 mg/72 hour Patch TOP SCH (21:21)
[2021-08-25] MEDS: Sodium Chloride 0.9% 1,000 ML IV SCH ×5 (01:30→23:45)
[2021-08-25] MEDS: Lorazepam 2 MG/ML VIAL SLOW IVP PRN ×4 (01:30→21:32)
[2021-08-25] MEDS: Ondansetron PF 4 MG/2 ML Vial IVP PRN ×3 (01:30→14:58)
[2021-08-25] MEDS: Dexamethasone 4 mg/ml Vial SLOW IVP SCH ×2 (08:48→21:32)
[2021-08-25] MEDS: DULoxetine 30 MG CAP PO SCH (08:48)
[2021-08-25] MEDS: Megestrol Acetate 40 MG TAB PO SCH (08:48)
[2021-08-25] MEDS: Hydrocortisone/Pramoxine (Proctofoam HC) 10 GM BOX TOP SCH ×2 (09:01→21:39)
[2021-08-25] MEDS: Gabapentin 300 MG CAP PO SCH ×3 (09:01→21:37)
[2021-08-25 14:52] LABS: #Lymphocytes 0.5 thou/uL (1.20-3.40); #Monocytes 0.2 thou/uL (0.11-0.59); #Neutrophils 3.2 thou/uL (1.40-6.50); %Basophils 0.2 % (0.0-1.0); %Eosinophils 0.6 % (0.0-10.0); %Lymphocytes 12.6 % (21.0-51.0); %Monocytes 4.9 % (0.0-10.0); %Neutrophils 81.6 % (42.0-75.0); Mean Corpuscular HGB CONC 34.9 g/dL (32.0-36.0); Mean Corpuscular Hemoglobin 34.8 pg (27.0-31.0); Mean Corpuscular Volume 99.7 fL (78.0-98.0); Mean Platelet Volume 6.3 fL (7.4-10.4); Platelet Count 220 thou/uL (130-400); RBC Distribution Width 16.4 % (11.5-14.5); Red Blood Cell (RBC) Count 3.72 mill/uL (4.20-5.40); White Blood Cell (WBC) Count 3.9 thou/uL (4.8-10.8)
[2021-08-25 15:22] LABS: ALT (SGPT) 24 U/L (8-55); AST (SGOT) 27 U/L (5-34); Albumin 3.6 g/dL (3.5-5.0); Alkaline Phosphatase 71 U/L (40-110); Anion Gap 11 mmol/L (10-20); BUN (Urea Nitrogen) 13 mg/dL (9.8-20.1); Bilirubin, Total 0.8 mg/dL (0.2-1.2); Calc. Creatinine Clearance 50 mL/min (70-130); Calcium 10.5 mg/dL (7.8-10.44); Carbon Dioxide 24 mmol/L (22-29); Chloride 102 mmol/L (98-107); Globulin 2.3 g/dL (2.4-3.5); Glucose 131 mg/dL (70-105); Potassium 3.4 mmol/L (3.5-5.1); Protein, Total 5.9 g/dL (6.0-8.3); Sodium 134 mmol/L (136-145)
[2021-08-26] MEDS: Lorazepam 2 MG/ML VIAL SLOW IVP PRN ×4 (02:18→22:25)
[2021-08-26] MEDS: Sodium Chloride 0.9% 1,000 ML IV SCH (06:24)
[2021-08-26] MEDS: Hydrocortisone/Pramoxine (Proctofoam HC) 10 GM BOX TOP SCH ×2 (10:27→21:06)
[2021-08-26] MEDS: Dexamethasone 4 mg/ml Vial SLOW IVP SCH ×2 (10:28→21:26)
[2021-08-26] MEDS: Megestrol Acetate 40 MG TAB PO SCH (10:28)
[2021-08-26] MEDS: DULoxetine 30 MG CAP PO SCH (10:28)
[2021-08-26] MEDS ORDERED: Bisacodyl 5 MG TAB PO PRN (13:41)
[2021-08-26] MEDS ORDERED: GUAIFENESIN SF SOLN 200 MG/10 ML UDCUP PO PRN (13:41)
[2021-08-26] MEDS ORDERED: Benzonatate 100 MG CAP PO PRN (13:41)
[2021-08-26] MEDS ORDERED: Artificial Tear Sol 15 ML BOT EA EYE PRN (13:41)
[2021-08-26] MEDS ORDERED: hydrALAZINE 20 MG/ML VIAL SLOW IVP PRN (13:41)
[2021-08-26] MEDS ORDERED: Loperamide HCl 2 MG CAP PO PRN (13:41)
[2021-08-26] MEDS ORDERED: Ondansetron ODT 4 MG TAB PO PRN (13:41)
[2021-08-26] MEDS ORDERED: Senokot S 8.6-50 MG TAB PO PRN (13:41)
[2021-08-26] MEDS ORDERED: Hydrocerin (Eucerin) Cream 120 gm Jar TOP PRN (13:41)
[2021-08-26] MEDS ORDERED: Calcium Carbonate 500 MG ChewTAB PO PRN (13:41)
[2021-08-26] MEDS ORDERED: Zolpidem Tartrate 5 MG TAB PO PRN (13:41)
[2021-08-26] MEDS ORDERED: Cepastat Lozenges 1 LOZ PO PRN (13:41)
[2021-08-26] MEDS: Gabapentin 300 MG CAP PO SCH ×3 (14:01→21:06)
[2021-08-26] MEDS: 1/2 NS w/KCL 20 mEq 1,000 ML IV SCH (14:02)
[2021-08-26] MEDS: Ondansetron PF 4 MG/2 ML Vial IVP PRN ×2 (18:10→22:45)
[2021-08-27] MEDS: 1/2 NS w/KCL 20 mEq 1,000 ML IV SCH ×4 (00:52→22:28)
[2021-08-27 05:52] LABS: #Eosinphils 0.1 thou/uL (0.0-0.7); #Lymphocytes 0.5 thou/uL (1.20-3.40); #Monocytes 0.3 thou/uL (0.11-0.59); #Neutrophils 3.6 thou/uL (1.40-6.50); %Basophils 0.1 % (0.0-1.0); %Eosinophils 1.3 % (0.0-10.0); %Lymphocytes 11.5 % (21.0-51.0); %Monocytes 7.3 % (0.0-10.0); %Neutrophils 79.7 % (42.0-75.0); Hemoglobin 10.8 g/dL (12.0-16.0); Mean Corpuscular HGB CONC 34.6 g/dL (32.0-36.0); Mean Corpuscular Hemoglobin 34.6 pg (27.0-31.0); Mean Platelet Volume 6.3 fL (7.4-10.4); Platelet Count 196 thou/uL (130-400); RBC Distribution Width 16.5 % (11.5-14.5); Red Blood Cell (RBC) Count 3.12 mill/uL (4.20-5.40); White Blood Cell (WBC) Count 4.6 thou/uL (4.8-10.8)
[2021-08-27 06:14] LABS: ALT (SGPT) 22 U/L (8-55); AST (SGOT) 22 U/L (5-34); Albumin 3.3 g/dL (3.5-5.0); Alkaline Phosphatase 51 U/L (40-110); Anion Gap 10 mmol/L (10-20); BUN (Urea Nitrogen) 10 mg/dL (9.8-20.1); Bilirubin, Total 0.6 mg/dL (0.2-1.2); Calc. Creatinine Clearance 67 mL/min (70-130); Calcium 9.8 mg/dL (7.8-10.44); Carbon Dioxide 22 mmol/L (22-29); Chloride 105 mmol/L (98-107); Globulin 1.9 g/dL (2.4-3.5); Glucose 117 mg/dL (70-105); Magnesium 1.7 mg/dL (1.6-2.6); Phosphorus 2.8 mg/dL (2.3-4.7); Potassium 3.7 mmol/L (3.5-5.1); Protein, Total 5.2 g/dL (6.0-8.3); Sodium 133 mmol/L (136-145)
[2021-08-27 07:44] LABS: SARS-CoV-2 NAA Rapid Test Not Detected (NotDetected)
[2021-08-27] MEDS: Dexamethasone 4 mg/ml Vial SLOW IVP SCH ×2 (08:13→21:12)
[2021-08-27] MEDS: Pantoprazole 40 MG VIAL IVP SCH (08:13)
[2021-08-27] MEDS: Lorazepam 2 MG/ML VIAL SLOW IVP PRN ×3 (08:13→21:13)
[2021-08-27] MEDS: DULoxetine 30 MG CAP PO SCH (08:19)
[2021-08-27] MEDS: Gabapentin 300 MG CAP PO SCH ×3 (08:20→19:30)
[2021-08-27] MEDS: Hydrocortisone/Pramoxine (Proctofoam HC) 10 GM BOX TOP SCH ×2 (08:22→19:30)
[2021-08-27] MEDS: Megestrol Acetate 40 MG TAB PO SCH (08:24)
[2021-08-27] MEDS ORDERED: ceFAZolin 2 GM/Dextrose 50 ML IVPB ONE (10:56)
[2021-08-27] MEDS ORDERED: PROPOFOL 200 MG/20 ML VIAL ONE (11:07)
[2021-08-27] MEDS: Ketorolac Tromethamine 30 MG/ML VIAL IVP PRN ×3 (11:59→23:58)
[2021-08-27] MEDS ORDERED: Ketorolac Tromethamine 30 MG/ML VIAL ONE (11:59)
[2021-08-27] MEDS ORDERED: Fentanyl 100 MCG/2 ML VIAL ONE (12:07)
[2021-08-27] MEDS: Scopolamine 1.5 mg/72 hour Patch TOP SCH (21:11)
[2021-08-27] MEDS: Ondansetron PF 4 MG/2 ML Vial IVP PRN (21:12)
[2021-08-27] MEDS ORDERED: Ketorolac Tromethamine 30 MG/ML VIAL IVP SCH (22:00)
[2021-08-28] MEDS: Lorazepam 2 MG/ML VIAL SLOW IVP PRN ×4 (01:01→22:22)
[2021-08-28 06:04] LABS: #Lymphocytes 0.4 thou/uL (1.20-3.40); #Monocytes 0.4 thou/uL (0.11-0.59); #Neutrophils 6.1 thou/uL (1.40-6.50); %Eosinophils 0.3 % (0.0-10.0); %Lymphocytes 5.2 % (21.0-51.0); %Monocytes 5.7 % (0.0-10.0); %Neutrophils 88.9 % (42.0-75.0); Hemoglobin 9.9 g/dL (12.0-16.0); Mean Corpuscular HGB CONC 33.7 g/dL (32.0-36.0); Mean Corpuscular Hemoglobin 33.9 pg (27.0-31.0); Mean Platelet Volume 6.2 fL (7.4-10.4); Platelet Count 165 thou/uL (130-400); RBC Distribution Width 16.4 % (11.5-14.5); Red Blood Cell (RBC) Count 2.92 mill/uL (4.20-5.40); White Blood Cell (WBC) Count 6.8 thou/uL (4.8-10.8)
[2021-08-28 06:14] LABS: ALT (SGPT) 24 U/L (8-55); AST (SGOT) 22 U/L (5-34); Albumin 2.8 g/dL (3.5-5.0); Alkaline Phosphatase 45 U/L (40-110); Anion Gap 10 mmol/L (10-20); BUN (Urea Nitrogen) 15 mg/dL (9.8-20.1); Bilirubin, Total 0.7 mg/dL (0.2-1.2); Calc. Creatinine Clearance 67 mL/min (70-130); Calcium 9.4 mg/dL (7.8-10.44); Carbon Dioxide 21 mmol/L (22-29); Chloride 106 mmol/L (98-107); Globulin 1.7 g/dL (2.4-3.5); Glucose 110 mg/dL (70-105); Phosphorus 2.9 mg/dL (2.3-4.7); Potassium 4.4 mmol/L (3.5-5.1); Protein, Total 4.5 g/dL (6.0-8.3); Sodium 133 mmol/L (136-145)
[2021-08-28] MEDS: Ondansetron PF 4 MG/2 ML Vial IVP PRN (09:48)
[2021-08-28] MEDS: Pantoprazole 40 MG VIAL IVP SCH (09:48)
[2021-08-28] MEDS: 1/2 NS w/KCL 20 mEq 1,000 ML IV SCH ×2 (09:49→20:05)
[2021-08-28] MEDS: Fentanyl 100 MCG/2 ML VIAL SLOW IVP PRN ×5 (11:24→22:42)
[2021-08-28] MEDS: Gabapentin 300 MG CAP PO SCH ×2 (15:11→22:19)
[2021-08-28] MEDS: Dexamethasone 4 mg/ml Vial SLOW IVP SCH ×3 (15:11→22:42)
[2021-08-28] MEDS: DULoxetine 30 MG CAP PO SCH (15:11)
[2021-08-28] MEDS: Hydrocortisone/Pramoxine (Proctofoam HC) 10 GM BOX TOP SCH ×2 (15:12→22:19)
[2021-08-28] MEDS: Megestrol Acetate 40 MG TAB PO SCH (15:12)
[2021-08-29] MEDS: Fentanyl 100 MCG/2 ML VIAL SLOW IVP PRN ×10 (01:05→23:49)
[2021-08-29] MEDS: Lorazepam 2 MG/ML VIAL SLOW IVP PRN ×5 (04:31→23:50)
[2021-08-29 05:19] LABS: ALT (SGPT) 37 U/L (8-55); AST (SGOT) 34 U/L (5-34); Albumin 2.9 g/dL (3.5-5.0); Alkaline Phosphatase 50 U/L (40-110); Anion Gap 8 mmol/L (10-20); BUN (Urea Nitrogen) 17 mg/dL (9.8-20.1); Bilirubin, Total 0.5 mg/dL (0.2-1.2); Calc. Creatinine Clearance 64 mL/min (70-130); Carbon Dioxide 22 mmol/L (22-29); Chloride 107 mmol/L (98-107); Globulin 1.7 g/dL (2.4-3.5); Glucose 166 mg/dL (70-105); Magnesium 1.7 mg/dL (1.6-2.6); Phosphorus 1.5 mg/dL (2.3-4.7); Potassium 4.6 mmol/L (3.5-5.1); Protein, Total 4.6 g/dL (6.0-8.3); Sodium 132 mmol/L (136-145)
[2021-08-29] MEDS ORDERED: Electrolyte Replacement Protocol 1 EACH FS PRN (05:39)
[2021-08-29] MEDS ORDERED: Magnesium 2 GM/50 ML 2 GM in Premix Bag 1 BAG IVPB SCH (05:45)
[2021-08-29] MEDS: PHOS-NAK 1 PKT PACK PO SCH ×4 (06:14→18:08)
[2021-08-29] MEDS: Hydrocortisone/Pramoxine (Proctofoam HC) 10 GM BOX TOP SCH ×2 (08:25→21:40)
[2021-08-29] MEDS: Gabapentin 300 MG CAP PO SCH ×3 (08:25→21:40)
[2021-08-29] MEDS: 1/2 NS w/KCL 20 mEq 1,000 ML IV SCH ×3 (08:29→19:59)
[2021-08-29] MEDS: Dexamethasone 4 mg/ml Vial SLOW IVP SCH ×2 (08:37→21:35)
[2021-08-29] MEDS: Pantoprazole 40 MG VIAL IVP SCH (08:37)
[2021-08-29] MEDS: Megestrol Acetate 40 MG TAB PO SCH (08:37)
[2021-08-29] MEDS: DULoxetine 30 MG CAP PO SCH (08:38)
[2021-08-29] MEDS: Cyanocobalamin (Vitamin B-12) 1,000 MCG TAB PO SCH (09:04)
[2021-08-29] MEDS: Multivitamin W/ Minerals 1 TAB PO SCH (09:04)
[2021-08-29] MEDS: Folic Acid 1 MG TAB PO SCH (09:04)
[2021-08-29] MEDS: Thiamine 100 MG TAB PO SCH (09:04)
[2021-08-30] MEDS: Fentanyl 100 MCG/2 ML VIAL SLOW IVP PRN ×8 (01:59→21:51)
[2021-08-30] MEDS: Lorazepam 2 MG/ML VIAL SLOW IVP PRN ×4 (04:14→19:58)
[2021-08-30] MEDS: 1/2 NS w/KCL 20 mEq 1,000 ML IV SCH (04:14)
[2021-08-30 04:33] LABS: #Eosinphils 0.1 thou/uL (0.0-0.7); #Lymphocytes 0.6 thou/uL (1.20-3.40); #Monocytes 0.4 thou/uL (0.11-0.59); #Neutrophils 6.1 thou/uL (1.40-6.50); %Basophils 0.1 % (0.0-1.0); %Eosinophils 0.8 % (0.0-10.0); %Lymphocytes 8.6 % (21.0-51.0); %Monocytes 5.4 % (0.0-10.0); %Neutrophils 85.1 % (42.0-75.0); Hemoglobin 10.2 g/dL (12.0-16.0); Mean Corpuscular HGB CONC 33.6 g/dL (32.0-36.0); Mean Platelet Volume 6.5 fL (7.4-10.4); Platelet Count 180 thou/uL (130-400); RBC Distribution Width 16.7 % (11.5-14.5); White Blood Cell (WBC) Count 7.1 thou/uL (4.8-10.8)
[2021-08-30 05:17] LABS: ALT (SGPT) 32 U/L (8-55); AST (SGOT) 17 U/L (5-34); Albumin 3.2 g/dL (3.5-5.0); Alkaline Phosphatase 63 U/L (40-110); Anion Gap 11 mmol/L (10-20); BUN (Urea Nitrogen) 14 mg/dL (9.8-20.1); Bilirubin, Total 0.4 mg/dL (0.2-1.2); Calc. Creatinine Clearance 75 mL/min (70-130); Calcium 8.9 mg/dL (7.8-10.44); Carbon Dioxide 22 mmol/L (22-29); Chloride 106 mmol/L (98-107); Globulin 1.8 g/dL (2.4-3.5); Glucose 164 mg/dL (70-105); Magnesium 1.9 mg/dL (1.6-2.6); Phosphorus 1.1 mg/dL (2.3-4.7); Potassium 4.5 mmol/L (3.5-5.1); Sodium 134 mmol/L (136-145)
[2021-08-30] MEDS ORDERED: Magnesium 2 GM/50 ML 2 GM in Premix Bag 1 BAG IVPB SCH (05:30)
[2021-08-30] MEDS ORDERED: Potassium Phosphate 22 MMOL in Sodium Chloride 0.9% 250 ML 250 ML IVPB SCH (06:00)
[2021-08-30] MEDS: Ondansetron PF 4 MG/2 ML Vial IVP PRN (08:51)
[2021-08-30] MEDS ORDERED: PHOS-NAK 1 PKT PACK PO SCH (09:00)
[2021-08-30] MEDS: Dexamethasone 4 mg/ml Vial SLOW IVP SCH (09:01)
[2021-08-30] MEDS: Thiamine 100 MG TAB PO SCH (09:02)
[2021-08-30] MEDS: Megestrol Acetate 40 MG TAB PO SCH (09:02)
[2021-08-30] MEDS: Gabapentin 300 MG CAP PO SCH ×3 (09:02→20:24)
[2021-08-30] MEDS: Cyanocobalamin (Vitamin B-12) 1,000 MCG TAB PO SCH (09:02)
[2021-08-30] MEDS: DULoxetine 30 MG CAP PO SCH (09:02)
[2021-08-30] MEDS: Multivitamin W/ Minerals 1 TAB PO SCH (09:03)
[2021-08-30] MEDS: Folic Acid 1 MG TAB PO SCH (09:04)
[2021-08-30] MEDS: Hydrocortisone/Pramoxine (Proctofoam HC) 10 GM BOX TOP SCH ×2 (09:05→20:25)
[2021-08-30] MEDS: Pantoprazole 40 MG VIAL IVP SCH ×2 (10:24→13:50)
[2021-08-30] MEDS: Scopolamine 1.5 mg/72 hour Patch TOP SCH (21:41)
[2021-08-31] MEDS: Fentanyl 100 MCG/2 ML VIAL SLOW IVP PRN ×6 (00:17→22:09)
[2021-08-31 06:43] LABS: Magnesium 1.8 mg/dL (1.6-2.6); Phosphorus 1.4 mg/dL (2.3-4.7)
[2021-08-31 06:52] LABS: ALT (SGPT) 26 U/L (8-55); AST (SGOT) 13 U/L (5-34); Albumin 2.9 g/dL (3.5-5.0); Alkaline Phosphatase 60 U/L (40-110); Anion Gap 8 mmol/L (10-20); BUN (Urea Nitrogen) 12 mg/dL (9.8-20.1); Bilirubin, Total 0.3 mg/dL (0.2-1.2); Calc. Creatinine Clearance 86 mL/min (70-130); Calcium 8.6 mg/dL (7.8-10.44); Carbon Dioxide 23 mmol/L (22-29); Chloride 107 mmol/L (98-107); Globulin 1.7 g/dL (2.4-3.5); Glucose 136 mg/dL (70-105); Protein, Total 4.6 g/dL (6.0-8.3); Sodium 134 mmol/L (136-145)
[2021-08-31] MEDS ORDERED: Magnesium 2 GM/50 ML 2 GM in Premix Bag 1 BAG IVPB SCH (07:00)
[2021-08-31] MEDS: Cyanocobalamin (Vitamin B-12) 1,000 MCG TAB PO SCH (09:25)
[2021-08-31] MEDS: Multivitamin W/ Minerals 1 TAB PO SCH (09:26)
[2021-08-31] MEDS: Dexamethasone 4 mg/ml Vial SLOW IVP SCH (09:26)
[2021-08-31] MEDS: DULoxetine 30 MG CAP PO SCH (09:26)
[2021-08-31] MEDS: Folic Acid 1 MG TAB PO SCH (09:27)
[2021-08-31] MEDS: Lorazepam 2 MG/ML VIAL SLOW IVP PRN ×4 (09:35→23:14)
[2021-08-31] MEDS: PHOS-NAK 1 PKT PACK PO SCH ×4 (09:38→19:44)
[2021-08-31] MEDS: Pantoprazole 40 MG VIAL IVP SCH (09:41)
[2021-08-31] MEDS: Thiamine 100 MG TAB PO SCH (09:41)
[2021-08-31] MEDS: Gabapentin 300 MG CAP PO SCH ×3 (09:42→22:12)
[2021-08-31] MEDS: Hydrocortisone/Pramoxine (Proctofoam HC) 10 GM BOX TOP SCH ×2 (09:42→22:12)
[2021-08-31] MEDS: Megestrol Acetate 40 MG TAB PO SCH (09:42)
[2021-08-31] MEDS: Ondansetron PF 4 MG/2 ML Vial IVP PRN (14:24)
[2021-09-01] MEDS: Fentanyl 100 MCG/2 ML VIAL SLOW IVP PRN ×4 (02:54→19:37)
[2021-09-01] MEDS: Lorazepam 2 MG/ML VIAL SLOW IVP PRN ×2 (06:36→23:27)
[2021-09-01 07:40] LABS: ALT (SGPT) 30 U/L (8-55); AST (SGOT) 18 U/L (5-34); Albumin 2.9 g/dL (3.5-5.0); Alkaline Phosphatase 60 U/L (40-110); Anion Gap 10 mmol/L (10-20); BUN (Urea Nitrogen) 12 mg/dL (9.8-20.1); Bilirubin, Total 0.3 mg/dL (0.2-1.2); Calc. Creatinine Clearance 89 mL/min (70-130); Carbon Dioxide 25 mmol/L (22-29); Chloride 105 mmol/L (98-107); Globulin 1.9 g/dL (2.4-3.5); Glucose 129 mg/dL (70-105); Magnesium 1.9 mg/dL (1.6-2.6); Phosphorus 2.4 mg/dL (2.3-4.7); Potassium 4.1 mmol/L (3.5-5.1); Protein, Total 4.8 g/dL (6.0-8.3); Sodium 136 mmol/L (136-145)
[2021-09-01] MEDS ORDERED: Magnesium 2 GM/50 ML 2 GM in Premix Bag 1 BAG IVPB SCH (08:00)
[2021-09-01] MEDS: Pantoprazole 40 MG VIAL IVP SCH (09:14)
[2021-09-01] MEDS: Dexamethasone 4 mg/ml Vial SLOW IVP SCH (09:14)
[2021-09-01] MEDS: Folic Acid 1 MG TAB PO SCH (11:28)
[2021-09-01] MEDS: Enoxaparin Sodium 30 MG/0.3 ML SYRINGE SC SCH (11:28)
[2021-09-01] MEDS: Cyanocobalamin (Vitamin B-12) 1,000 MCG TAB PO SCH (11:28)
[2021-09-01] MEDS: DULoxetine 30 MG CAP PO SCH (11:28)
[2021-09-01] MEDS: Gabapentin 300 MG CAP PO SCH ×3 (11:28→20:32)
[2021-09-01] MEDS: Thiamine 100 MG TAB PO SCH (11:29)
[2021-09-01] MEDS: Hydrocortisone/Pramoxine (Proctofoam HC) 10 GM BOX TOP SCH ×2 (11:29→20:33)
[2021-09-01] MEDS: Multivitamin W/ Minerals 1 TAB PO SCH (11:29)
[2021-09-01] MEDS: Megestrol Acetate 40 MG TAB PO SCH (11:29)
[2021-09-01] MEDS: Acetaminophen W/ Codeine 5 ML UDCUP PO SCH ×3 (12:53→23:27)
[2021-09-01] MEDS: Ondansetron PF 4 MG/2 ML Vial IVP PRN (17:45)
[2021-09-02] MEDS: Fentanyl 100 MCG/2 ML VIAL SLOW IVP PRN ×4 (02:01→12:44)
[2021-09-02] MEDS: Acetaminophen W/ Codeine 5 ML UDCUP PO SCH ×3 (05:36→20:00)
[2021-09-02] MEDS: Cyanocobalamin (Vitamin B-12) 1,000 MCG TAB PO SCH (08:20)
[2021-09-02] MEDS: DULoxetine 30 MG CAP PO SCH (08:21)
[2021-09-02] MEDS: Gabapentin 300 MG CAP PO SCH ×3 (08:21→20:28)
[2021-09-02] MEDS: Folic Acid 1 MG TAB PO SCH (08:21)
[2021-09-02] MEDS: Enoxaparin Sodium 30 MG/0.3 ML SYRINGE SC SCH (08:21)
[2021-09-02] MEDS: Megestrol Acetate 40 MG TAB PO SCH (08:21)
[2021-09-02] MEDS: Hydrocortisone/Pramoxine (Proctofoam HC) 10 GM BOX TOP SCH ×2 (08:21→20:28)
[2021-09-02] MEDS: Multivitamin W/ Minerals 1 TAB PO SCH (08:22)
[2021-09-02] MEDS: Thiamine 100 MG TAB PO SCH (08:22)
[2021-09-02] MEDS: Pantoprazole 40 MG VIAL IVP SCH ×2 (09:03)
[2021-09-02] MEDS: Dexamethasone 4 mg/ml Vial SLOW IVP SCH (09:04)
[2021-09-02] MEDS ORDERED: Fentanyl 100 MCG/2 ML VIAL SLOW IVP PRN (18:10)
[2021-09-02] MEDS: Dextrose 5 % And 0.9 % NaCl 1,000 ML IV SCH (20:00)
[2021-09-02] MEDS: Scopolamine 1.5 mg/72 hour Patch TOP SCH (20:31)
[2021-09-02] MEDS ORDERED: Lorazepam 0.5 MG TAB PO SCH (21:00)
[2021-09-03] MEDS: Dextrose 5 % And 0.9 % NaCl 1,000 ML IV SCH (09:06)
[2021-09-03] MEDS: Acetaminophen W/ Codeine 5 ML UDCUP PO SCH ×2 (09:06→14:18)
[2021-09-03] MEDS: Enoxaparin Sodium 30 MG/0.3 ML SYRINGE SC SCH (09:45)
[2021-09-03] MEDS: Folic Acid 1 MG TAB PO SCH (09:45)
[2021-09-03] MEDS: Megestrol Acetate 40 MG TAB PO SCH (09:45)
[2021-09-03] MEDS: Gabapentin 300 MG CAP PO SCH ×2 (09:45→14:18)
[2021-09-03] MEDS: Cyanocobalamin (Vitamin B-12) 1,000 MCG TAB PO SCH (09:45)
[2021-09-03] MEDS: Thiamine 100 MG TAB PO SCH (09:45)
[2021-09-03] MEDS: Hydrocortisone/Pramoxine (Proctofoam HC) 10 GM BOX TOP SCH (09:45)
[2021-09-03] MEDS: Multivitamin W/ Minerals 1 TAB PO SCH (09:45)
[2021-09-03] MEDS: DULoxetine 30 MG CAP PO SCH (09:45)
[2021-09-03 12:11] VITALS: BP 173/81; TEMP 98.1
[2021-09-03 17:53] LABS: SARS-CoV-2 PCR by NAA Not Detected (NotDetected)
== END 2021-09-03 16:00 | disposition hospice, home (50) | DRG 374 ==
LOC: MSONC 12:33 → OBSVTOIN 08-16 09:06 → IMCU/EMU 08-22 11:47 → MSONC 08-24 12:54
PROVIDERS: ADMIT Internal Medicine; ATTEND Family Medicine
PROC: DDY Radiation Therapy, Gastrointestinal System, Other Radiation (ICD-10-PCS; principal; 2021-08-17)
PROC: 0DH67UZ Insertion of Feeding Device into Stomach, Via Natural or Artificial Opening (ICD-10-PCS; 2021-08-22)
PROC: 3E0G76Z Introduction of Nutritional Substance into Upper GI, Via Natural or Artificial Opening (ICD-10-PCS; 2021-08-22)
PROC: 0DH63UZ Insertion of Feeding Device into Stomach, Percutaneous Approach (ICD-10-PCS; 2021-08-27)
DX: C20 Malignant neoplasm of rectum (principal); G92.8 Other toxic encephalopathy; E44.0 Moderate protein-calorie malnutrition; N17.9 Acute kidney failure, unspecified; E87.2 Acidosis; R45.851 Suicidal ideations; Z68.1 Body mass index [BMI] 19.9 or less, adult; Z20.822 Contact with and (suspected) exposure to COVID-19; Z51.5 Encounter for palliative care; E87.6 Hypokalemia; T42.4X5A Adverse effect of benzodiazepines, initial encounter; T39.1X5A Adverse effect of 4-Aminophenol derivatives, initial encounter; K29.60 Other gastritis without bleeding; I10 Essential (primary) hypertension; E86.0 Dehydration; R77.8 Other specified abnormalities of plasma proteins; F41.9 Anxiety disorder, unspecified; F32.A Depression, unspecified; G62.9 Polyneuropathy, unspecified; T45.1X5A Adverse effect of antineoplastic and immunosuppressive drugs, initial encounter; E86.1 Hypovolemia; R62.7 Adult failure to thrive; R13.10 Dysphagia, unspecified; E83.39 Other disorders of phosphorus metabolism; D70.1 Agranulocytosis secondary to cancer chemotherapy; E83.52 Hypercalcemia; T85.848A Pain due to other internal prosthetic devices, implants and grafts, initial encounter; Y83.3 Surgical operation with formation of external stoma as the cause of abnormal reaction of the patient, or of later complication, without mention of misadventure at the time of the procedure; E87.8 Other disorders of electrolyte and fluid balance, not elsewhere classified; Z79.899 Other long term (current) drug therapy; Z93.2 Ileostomy status; Z88.1 Allergy status to other antibiotic agents; Z88.5 Allergy status to narcotic agent; Z88.0 Allergy status to penicillin; Z88.8 Allergy status to other drugs, medicaments and biological substances; Z91.018 Allergy to other foods; Z90.710 Acquired absence of both cervix and uterus; Z90.89 Acquired absence of other organs; Z87.891 Personal history of nicotine dependence; Z51.0 Encounter for antineoplastic radiation therapy
CPT/HCPCS: 36415; 36416; 70450; 71045; 72125; 74018; 74177; 77336; 77386; 80048; 80053; 82533; 83735; 84100; 84484; 85025; 93005; 93010; C9113; J0690; J1100; J1170; J1642; J1885; J2060; J2405; J2550; J2704; J3010; J3475; J3480; J7042; J7050; J7070; S0179; U0002; U0003; U0005

== ENCOUNTER 2022-01-18 11:16 | Outpatient (CLI) | payer BC ==
[2022-01-18 12:44] LABS: #Basophils 0.1 10x3/uL (0.0-0.2); #Eosinphils 0.2 10x3/uL (0.0-0.5); #Monocytes 0.4 10x3/uL (0.0-1.1); #Neutrophils 2.5 10x3/uL (1.5-8.4); %Eosinophils 4.2 % (0.0-6.0); %Lymphocytes 32.7 % (18.0-47.0); %Neutrophils 52.7 % (40.0-75.0); Mean Corpuscular HGB CONC 33.2 g/dL (32.0-36.0); Mean Corpuscular Volume 84.5 fl (81.6-98.3); Platelet Count 252 10x3/uL (150-450); RBC Distribution Width 16.3 % (11.5-14.5); Red Blood Cell (RBC) Count 4.64 10x6/uL (3.90-5.03); White Blood Cell (WBC) Count 4.8 10x3/uL (3.5-10.5)
[2022-01-18 13:27] LABS: ALT (SGPT) 22 U/L (8-55); AST (SGOT) 24 U/L (5-34); Albumin 4.4 g/dL (3.5-5.0); Alkaline Phosphatase 104 U/L (40-110); Anion Gap 13 mmol/L (10-20); BUN (Urea Nitrogen) 19 mg/dL (9.8-20.1); Bilirubin, Total 0.3 mg/dL (0.2-1.2); Calc. Creatinine Clearance 0 mL/min (70-130); Calcium 10.2 mg/dL (7.8-10.44); Carbon Dioxide 25 mmol/L (22-29); Chloride 104 mmol/L (98-107); Globulin 2.5 g/dL (2.4-3.5); Glucose 80 mg/dL (70-105); Potassium 4.4 mmol/L (3.5-5.1); Protein, Total 6.9 g/dL (6.0-8.3); Sodium 138 mmol/L (136-145)
== END 2022-01-18 11:17 | disposition home or self-care (01) ==
LOC: LABBT 11:16
PROVIDERS: ATTEND Surgery
DX: Z01.818 Encounter for other preprocedural examination (principal); Z93.2 Ileostomy status; Z20.822 Contact with and (suspected) exposure to COVID-19
CPT/HCPCS: 80053; 85025; 93005; 93010; U0003; U0005

== ENCOUNTER 2022-01-18 11:45 | Inpatient (IN) | payer BC ==
[2022-01-23] MEDS ORDERED: fentaNYL Citrate/PF 100 MCG/2 ML SYRINGE ONE (07:23)
[2022-01-23] MEDS ORDERED: HYDROmorphone 2 MG/ML VIAL ONE ×2 (07:48→10:15)
[2022-01-23] MEDS ORDERED: Levofloxacin 500 mg/D5W 100 ml Premix Bag ONE (08:06)
[2022-01-23] MEDS ORDERED: PROPOFOL 200 MG/20 ML VIAL ONE (08:15)
[2022-01-23] MEDS ORDERED: Rocuronium Bromide 10 MG/ML (10ML VIAL) ONE (08:15)
[2022-01-23] MEDS ORDERED: Labetalol HCl 100 MG/20 ML VIAL ONE (08:15)
[2022-01-23] MEDS ORDERED: Esmolol 100 MG/10 ML VIAL ONE (08:15)
[2022-01-23] MEDS ORDERED: Glycopyrrolate 0.2 MG/ML 5 ML SYRINGE ONE (08:15)
[2022-01-23] MEDS ORDERED: Ondansetron PF 4 MG/2 ML Vial IVP PRN (09:43)
[2022-01-23] MEDS ORDERED: Promethazine HCl 25 MG/ML VIAL IM PRN ×2 (09:43→10:30)
[2022-01-23] MEDS ORDERED: hydrALAZINE 20 MG/ML VIAL SLOW IVP PRN (09:43)
[2022-01-23] MEDS ORDERED: Clindamycin/D5W 900 MG in Premix Bag 1 BAG IVPB SCH (09:45)
[2022-01-23] MEDS ORDERED: hydrALAZINE 20 MG/ML VIAL ONE (09:57)
[2022-01-23] MEDS ORDERED: Lidocaine 1% w/Epinephrine 1:100K 20 ML VIAL ONE (10:00)
[2022-01-23] MEDS ORDERED: Bupivacaine 0.25% HCL 30 ML VIAL ONE (10:00)
[2022-01-23] MEDS ORDERED: Naloxone HCl 0.4 mg/ml Vial IV PRN (10:30)
[2022-01-23] MEDS ORDERED: HYDROmorphone/PF 10 MG in Sodium Chloride 0.9% 95 ML IVPB PRN (10:30)
[2022-01-23] MEDS ORDERED: diphenhydrAMINE 25 MG CAP PO PRN (10:30)
[2022-01-23] MEDS ORDERED: Zolpidem Tartrate 5 MG TAB PO PRN (10:30)
[2022-01-23] MEDS ORDERED: diphenhydrAMINE 50 MG/ML VIAL IM/IV PRN (10:30)
[2022-01-23] MEDS ORDERED: Promethazine HCl 25 MG/ML VIAL ONE (12:51)
[2022-01-23] MEDS: Ondansetron PF 4 MG/2 ML Vial IVP PRN ×2 (14:45→21:51)
[2022-01-23] MEDS: Sodium Chloride 0.9% 1,000 ML IV SCH ×3 (14:46→23:31)
[2022-01-23] MEDS: Clindamycin/D5W 900 MG in Premix Bag 1 BAG IVPB SCH ×2 (17:05→21:52)
[2022-01-23 17:17] VITALS: BMI 25.1
[2022-01-23] MEDS: Famotidine/PF 20 mg/2ml Vial SLOW IVP SCH (21:51)
[2022-01-23] MEDS: Famotidine 20 MG TAB PO SCH (21:57)
[2022-01-24] MEDS: Clindamycin/D5W 900 MG in Premix Bag 1 BAG IVPB SCH (04:18)
[2022-01-24] MEDS: Ondansetron PF 4 MG/2 ML Vial IVP PRN ×3 (04:18→23:02)
[2022-01-24 05:44] LABS: #Lymphocytes 0.7 thou/uL (1.20-3.40); #Monocytes 0.7 thou/uL (0.11-0.59); %Basophils 0.1 % (0.0-1.0); %Eosinophils 0.2 % (0.0-10.0); %Lymphocytes 9.4 % (21.0-51.0); %Monocytes 8.8 % (0.0-10.0); %Neutrophils 81.5 % (42.0-75.0); Hemoglobin 8.7 g/dL (12.0-16.0); Mean Corpuscular HGB CONC 32.9 g/dL (32.0-36.0); Mean Corpuscular Hemoglobin 29.2 pg (27.0-31.0); Mean Corpuscular Volume 88.8 fL (78.0-98.0); Mean Platelet Volume 6.3 fL (7.4-10.4); Platelet Count 193 thou/uL (130-400); RBC Distribution Width 15.7 % (11.5-14.5); Red Blood Cell (RBC) Count 2.98 mill/uL (4.20-5.40); White Blood Cell (WBC) Count 7.3 thou/uL (4.8-10.8)
[2022-01-24 06:04] LABS: Anion Gap 14 mmol/L (10-20); BUN (Urea Nitrogen) 18 mg/dL (9.8-20.1); Calc. Creatinine Clearance 93 mL/min (70-130); Calcium 9.5 mg/dL (7.8-10.44); Carbon Dioxide 22 mmol/L (22-29); Chloride 109 mmol/L (98-107); Glucose 129 mg/dL (70-105); Potassium 3.8 mmol/L (3.5-5.1); Sodium 141 mmol/L (136-145)
[2022-01-24] MEDS: Famotidine/PF 20 mg/2ml Vial SLOW IVP SCH ×2 (08:32→20:14)
[2022-01-24] MEDS: Enoxaparin Sodium 40 MG/0.4 ML SYRINGE SC SCH (08:32)
[2022-01-24] MEDS: Famotidine 20 MG TAB PO SCH ×2 (08:33→20:23)
[2022-01-24] MEDS: Sodium Chloride 0.9% 1,000 ML IV SCH ×2 (10:00→19:09)
[2022-01-24] MEDS: Lorazepam 2 MG/ML VIAL SLOW IVP PRN ×2 (10:41→20:15)
[2022-01-25] MEDS: Lorazepam 2 MG/ML VIAL SLOW IVP PRN ×4 (02:03→21:39)
[2022-01-25] MEDS: Sodium Chloride 0.9% 1,000 ML IV SCH ×3 (03:00→20:38)
[2022-01-25] MEDS: Ondansetron PF 4 MG/2 ML Vial IVP PRN ×2 (04:59→20:38)
[2022-01-25] MEDS: Enoxaparin Sodium 40 MG/0.4 ML SYRINGE SC SCH (08:43)
[2022-01-25] MEDS: Famotidine 20 MG TAB PO SCH ×2 (08:43→23:33)
[2022-01-25] MEDS: Famotidine/PF 20 mg/2ml Vial SLOW IVP SCH ×2 (08:43→20:38)
[2022-01-25 16:27] LABS: Hemoglobin 8.5 g/dL (12.0-16.0)
[2022-01-26] MEDS: Ondansetron PF 4 MG/2 ML Vial IVP PRN (04:57)
[2022-01-26 06:03] LABS: #Eosinphils 0.2 thou/uL (0.0-0.7); #Lymphocytes 0.7 thou/uL (1.20-3.40); #Monocytes 0.5 thou/uL (0.11-0.59); #Neutrophils 4.1 thou/uL (1.40-6.50); %Basophils 0.7 % (0.0-1.0); %Eosinophils 3.1 % (0.0-10.0); %Lymphocytes 13.3 % (21.0-51.0); %Monocytes 8.8 % (0.0-10.0); %Neutrophils 74.1 % (42.0-75.0); Hemoglobin 7.8 g/dL (12.0-16.0); Mean Corpuscular HGB CONC 31.7 g/dL (32.0-36.0); Mean Corpuscular Hemoglobin 28.4 pg (27.0-31.0); Mean Corpuscular Volume 89.5 fL (78.0-98.0); Mean Platelet Volume 6.5 fL (7.4-10.4); Platelet Count 212 thou/uL (130-400); Red Blood Cell (RBC) Count 2.75 mill/uL (4.20-5.40); White Blood Cell (WBC) Count 5.5 thou/uL (4.8-10.8)
[2022-01-26] MEDS: Sodium Chloride 0.9% 1,000 ML IV SCH ×3 (06:11→20:46)
[2022-01-26] MEDS: Lorazepam 2 MG/ML VIAL SLOW IVP PRN ×3 (06:34→20:32)
[2022-01-26] MEDS: Famotidine/PF 20 mg/2ml Vial SLOW IVP SCH ×2 (09:34→20:32)
[2022-01-26] MEDS: Famotidine 20 MG TAB PO SCH ×2 (09:39→20:06)
[2022-01-26 12:24] LABS: Hemoglobin 7.9 g/dL (12.0-16.0)
[2022-01-27 06:06] LABS: #Eosinphils 0.4 thou/uL (0.0-0.7); #Lymphocytes 0.9 thou/uL (1.20-3.40); #Monocytes 0.4 thou/uL (0.11-0.59); %Basophils 0.8 % (0.0-1.0); %Eosinophils 11.6 % (0.0-10.0); %Lymphocytes 22.9 % (21.0-51.0); %Monocytes 10.3 % (0.0-10.0); %Neutrophils 54.3 % (42.0-75.0); Hemoglobin 7.8 g/dL (12.0-16.0); Mean Corpuscular HGB CONC 32.8 g/dL (32.0-36.0); Mean Corpuscular Hemoglobin 29.3 pg (27.0-31.0); Mean Corpuscular Volume 89.5 fL (78.0-98.0); Mean Platelet Volume 6.1 fL (7.4-10.4); Platelet Count 221 thou/uL (130-400); RBC Distribution Width 16.5 % (11.5-14.5); Red Blood Cell (RBC) Count 2.66 mill/uL (4.20-5.40); White Blood Cell (WBC) Count 3.7 thou/uL (4.8-10.8)
[2022-01-27 08:46] VITALS: TEMP 98.2
[2022-01-27] MEDS: Ondansetron PF 4 MG/2 ML Vial IVP PRN (09:04)
[2022-01-27] MEDS: Famotidine/PF 20 mg/2ml Vial SLOW IVP SCH (09:05)
[2022-01-27] MEDS: Famotidine 20 MG TAB PO SCH (09:08)
[2022-01-27] MEDS: Sodium Chloride 0.9% 1,000 ML IV SCH ×2 (09:08→13:42)
[2022-01-27] MEDS: Lorazepam 2 MG/ML VIAL SLOW IVP PRN (09:12)
[2022-01-27] MEDS ORDERED: DC PCA Order Set 1 EACH FS ONE (11:49)
[2022-01-27] MEDS ORDERED: HYDROcodone/Acetaminophen 7.5/325 mg Tablet PO PRN ×2 (11:49)
[2022-01-27 15:39] VITALS: BP 141/85
== END 2022-01-27 15:58 | disposition home or self-care (01) | DRG 330 ==
LOC: SURG A 01-23 07:10
PROVIDERS: ADMIT Surgery; ATTEND Surgery
PROC: 0DQB0ZZ Repair Ileum, Open Approach (ICD-10-PCS; principal; 2022-01-23)
PROC: 0DP6XUZ Removal of Feeding Device from Stomach, External Approach (ICD-10-PCS; 2022-01-23)
DX: Z43.3 Encounter for attention to colostomy (principal); K91.89 Other postprocedural complications and disorders of digestive system; K56.7 Ileus, unspecified; K91.840 Postprocedural hemorrhage of a digestive system organ or structure following a digestive system procedure; I10 Essential (primary) hypertension; K21.9 Gastro-esophageal reflux disease without esophagitis; Y83.8 Other surgical procedures as the cause of abnormal reaction of the patient, or of later complication, without mention of misadventure at the time of the procedure; Z98.890 Other specified postprocedural states
CPT/HCPCS: 36415; 74018; 80048; 85014; 85018; 85025; 86850; 86900; 86901; 88304; A4649; C1889; J0360; J1170; J1200; J1956; J2060; J2405; J2550; J2704; J3490; J7050; J7620; S0020; S0028

== ENCOUNTER 2022-02-02 08:18 | Outpatient (CLI) | payer BC ==
[~2022-02-02 08:18] MED LIST changes: +ISOVUE-370 76%-LOCM 1 ML ONE; -Iopamidol-370 76% 500 ML 1 ML ONE
== END 2022-02-02 08:19 | disposition home or self-care (01) ==
LOC: BICCT 08:18
PROVIDERS: ATTEND Internal Medicine Hematology & Oncology
DX: C20 Malignant neoplasm of rectum (principal); D70.1 Agranulocytosis secondary to cancer chemotherapy; K63.89 Other specified diseases of intestine
CPT/HCPCS: 71260; 74177; Q9966

== ENCOUNTER 2022-05-12 13:19 | Outpatient (CLI) | payer BC | END 2022-05-12 13:20 | disposition home or self-care (01) | LOC: BICMAMMO 13:19 | PROVIDERS: ATTEND Nurse Practitioner | DX: Z12.31 Encounter for screening mammogram for malignant neoplasm of breast (principal); Z80.3 Family history of malignant neoplasm of breast; Z85.09 Personal history of malignant neoplasm of other digestive organs; Z91.89 Other specified personal risk factors, not elsewhere classified | CPT/HCPCS: 77063; 77067 ==

== ENCOUNTER 2022-07-26 14:07 | Outpatient (CLI) | payer BC ==
[~2022-07-26 14:07] MED LIST changes: -ISOVUE-370 76%-LOCM 1 ML ONE; +Iopamidol 370 76% 100 ML VIAL ONE
== END 2022-07-26 14:08 | disposition home or self-care (01) ==
LOC: BICCT 14:07
PROVIDERS: ATTEND Internal Medicine Hematology & Oncology
DX: C20 Malignant neoplasm of rectum (principal); R91.1 Solitary pulmonary nodule
CPT/HCPCS: 71260; 74177; 82565; Q9967

== ENCOUNTER 2023-01-19 12:29 | Outpatient (CLI) | payer BC ==
[2023-01-19] MEDS ORDERED: Magnevist 469MG/ML 20 ML VIAL ONE (13:55)
== END 2023-01-19 12:30 | disposition home or self-care (01) ==
LOC: BICMRI 12:29
PROVIDERS: ATTEND Nurse Practitioner
DX: G50.0 Trigeminal neuralgia (principal); R90.89 Other abnormal findings on diagnostic imaging of central nervous system
CPT/HCPCS: 70544; 70553

== ENCOUNTER 2023-06-26 08:08 | Outpatient (CLI) | payer BC | END 2023-06-26 08:09 | disposition home or self-care (01) | LOC: CT 08:08 | PROVIDERS: ATTEND Internal Medicine Hematology & Oncology | DX: C20 Malignant neoplasm of rectum (principal); R91.8 Other nonspecific abnormal finding of lung field | CPT/HCPCS: 71260; 74177; 82565 ==

== ENCOUNTER 2024-01-29 08:33 | Outpatient (CLI) | payer BC ==
[2024-01-29] MEDS ORDERED: Iopamidol 370 76% 100 ML VIAL ONE (12:15)
== END 2024-01-29 08:34 | disposition home or self-care (01) ==
LOC: CT 08:33
PROVIDERS: ATTEND Internal Medicine Hematology & Oncology
DX: C18.9 Malignant neoplasm of colon, unspecified (principal); R91.1 Solitary pulmonary nodule; C20 Malignant neoplasm of rectum; K63.89 Other specified diseases of intestine
CPT/HCPCS: 71260; 74177; 82565; Q9967

== ENCOUNTER 2024-08-12 11:31 | Outpatient (CLI) | payer BC, OTHER | END 2024-08-12 11:32 | disposition home or self-care (01) | LOC: BICMAMMO 11:31 | PROVIDERS: ATTEND Family Medicine | DX: Z12.31 Encounter for screening mammogram for malignant neoplasm of breast (principal); Z80.3 Family history of malignant neoplasm of breast; Z91.89 Other specified personal risk factors, not elsewhere classified; Z85.038 Personal history of other malignant neoplasm of large intestine | CPT/HCPCS: 77063; 77067 ==

== ENCOUNTER 2024-08-28 08:43 | Outpatient (CLI) | payer BC ==
[2024-08-28] MEDS ORDERED: Iopamidol 370 76% 100 ML VIAL ONE (13:41)
== END 2024-08-28 08:44 | disposition home or self-care (01) ==
LOC: BICCT 08:43
PROVIDERS: ATTEND Internal Medicine Hematology & Oncology
DX: C20 Malignant neoplasm of rectum (principal)
CPT/HCPCS: 36415; 71260; 74177; 82565; Q9967